=== PATIENT | female | born 1995 | race Native Hawaiian/Other Pacific Islander ===

== ENCOUNTER 2018-05-10 16:25 | Emergency (ER) | payer BC, OTHER ==
[2018-05-10 16:43] VITALS: BP 109/66; PULSE 104; RESP 20; TEMP 99
--- NOTE | 2018-05-10 17:48 | ED ---
Back Pain HPI - General Chief Complaint: Back Pain/Injury Stated Complaint: Back pain Time Seen by Provider: 05/10/18 16:55 Source: patient, RN notes reviewed Mode of arrival: ambulatory Limitations: no limitations - History of Present Illness Initial Comments: This is a 22-year-old female who presents to the emergency department with chief complaint of back pain. Patient states that she was sitting at home yesterday and began to experience left sided upper back and rib pain. She denies any specific injuries or trauma. She denies any past medical history. She denies chest pain or shortness of breath. Denies cough, fevers or chills, abdominal pain, nausea or vomiting, dysuria or hematuria. Patient states she is here because she would like a prescription for the pain. - Related Data Previous Rx's Medication Instructions Recorded Ibuprofen 600 mg PO Q6HR #20 tablet 05/10/18 Allergies Allergy/AdvReac Type Severity Reaction Status Date / Time No Known Allergies Allergy Verified 05/10/18 17:25 Review of Systems ROS Statement: Those systems with pertinent positive or pertinent negative responses have been documented in the HPI. ROS Other: All systems not noted in ROS Statement are negative. Past Medical History Past Medical History: No Reported History History of Any Multi-Drug Resistant Organisms: None Reported Past Surgical History: No Surgical Hx Reported Past Anesthesia/Blood Transfusion Reactions: No Reported Reaction Past Psychological History: No Psychological Hx Reported Smoking Status: Never smoker Past Alcohol Use History: None Reported Past Drug Use History: None Reported - Past Family History Mother Family Medical History: No Reported History General Exam - General Exam Comments Initial Comments: General: Awake and alert, well-developed; in no apparent distress. Patient appears well. Does not appear acutely ill. HEENT: Head atraumatic, normocephalic. Pupils are equal, round and reactive to light. Extraocular movements intact. Oropharynx moist without erythema or exudate. Neck: Supple. Normal ROM. Cardiovascular: Regular rate and rhythm. No murmurs, rubs or gallops. Chest symmetrical. Respiratory: Lungs clear to auscultation bilaterally. No wheezes, rales or rhonchi. Normal respiratory effort with no use of accessory muscles. Musculoskeletal: Normal ROM bilateral upper and lower extremities. Ambulating normally. Tenderness on palpation of left scapula and left lateral ribs. Skin: [place], warm and dry without rashes or lesions. Neurological: Alert and oriented x3. CN II-XII grossly intact. Speech is fluent and answers are appropriate. No focal neuro deficits. Psychiatric: Normal mood and affect. No overt signs of depression or anxiety noted. Limitations: no limitations Back exam: Present: full ROM, tenderness (left scapula). Absent: muscle spasm, paraspinal tenderness, vertebral tenderness Course Vital Signs 05/10/18 16:41 Temperature 99.0 F Pulse Rate 104 H Respiratory 20 Rate Blood Pressure 109/66 O2 Sat by Pulse 99 Oximetry Medical Decision Making - Medical Decision Making This is a 22-year-old female who presents to the emergency department with chief complaint of left upper back pain. Patient states the pain started yesterday. Denies any falls, injuries or trauma. Patient has normal range of motion of left upper extremity. She is neurovascularly intact. There is mild tenderness on palpation of the left scapula. Patient requests pain medication. She will be provided with a prescription for ibuprofen. Recommended following up with her primary care provider. Vitals are stable and she is in no acute distress. She will be discharged home at this time. All questions were answered. Disposition Clinical Impression: Left-sided thoracic back pain Disposition: HOME SELF-CARE Condition: Good Instructions: Thoracic Back Strain (ED) Additional Instructions: Please take medications as prescribed. Please follow up with primary care provider within 1-2 days. Return to emergency department if symptoms should worsen or any concerns arise. Prescriptions: Ibuprofen 600 mg PO Q6HR #20 tablet Is patient prescribed a controlled substance at d/c from ED?: No Referrals: Kayden Reynolds III, MD [Primary Care Provider] - 1-2 days Time of Disposition: 17:48
== END 2018-05-10 18:06 | disposition home or self-care (01) ==
LOC: EC 16:25
DX: M54.6 Pain in thoracic spine (principal); R07.81 Pleurodynia
CPT/HCPCS: 99283

== ENCOUNTER → 2018-09-15 | Outpatient (CLI) | payer OTHER ==
--- NOTE | 2018-09-16 08:28 | US ---
EXAMINATION TYPE: Transabdominal DATE OF EXAM: 12/07/17 COMPARISON: NONE CLINICAL HISTORY: Z36 Confirm Dates. Confirm dates EXAM PERFORMED: Transabdominal (TA) EXAM MEASUREMENTS: GESTATIONAL AGE / DATING Physician Established: Not yet established Dates by LMP: (10 weeks/0 days) EDC: 04/13/19 Dates by First Scan: No previous this is first scan Dates by Current Scan for: (10 weeks/1 days) EDC: 04/12/19 MATERNAL ANATOMY Uterus: 11.7 x 5.3 x 9.1cm Right Ovary: 3.0 x 1.7 x 1.2cm Left Ovary: 3.2 x 2.4 x 1.5cm Post CDS / Adnexa: appear wnl Presence of free fluid: no GESTATION / SURVEY CRL: 3.2cm (10 weeks/1 days) Yolk Sac (normal less than 6mm): 0.4cm Heart Rate: 176 bpm Rhythm: Normal IUP: Live IUP Date of LMP: 07/07/18 IMPRESSION: Single live intrauterine with a sonographic age of 10wks/1day and estimated date of deliver y of 04/12/19, concordant with menstrual age.
== END | disposition home or self-care (01) ==
LOC: RADUSWWP 15:18
PROVIDERS: ATTEND Obstetrics & Gynecology
DX: Z36.9 Encounter for antenatal screening, unspecified (principal); Z3A.10 10 weeks gestation of pregnancy
CPT/HCPCS: 76801

== ENCOUNTER 2018-09-21 08:44 | Emergency (ER) | payer OTHER ==
[2018-09-21 08:53] VITALS: TEMP 98.5
[2018-09-21] MEDS ORDERED: ACETAMINOPHEN IV (For NPO) 1,000 MG in EMPTY BAG 1 BAG IVPB STA (09:04)
--- NOTE | 2018-09-21 09:06 | ED ---
General Adult HPI - General Chief complaint: Abdominal Pain Stated complaint: Abd Pain-10 wks Time Seen by Provider: 09/21/18 08:56 Source: patient, RN notes reviewed, old records reviewed Mode of arrival: wheelchair Limitations: no limitations - History of Present Illness Initial comments: Patient 22-year-old female who presents emergency room today with a chief complaint of right-sided flank pain that started this morning approximately 4 hours ago. Patient describes it as a cramping type pain. Currently rated a 9/ 10. Did not take any pain medication. Patient is G2, P1 naproxen 10 weeks by ultrasound. She denies any vaginal bleeding or discharge. Patient denies any other complaints or symptoms. Patient denies any recent fever, chills , shortness of breath, chest pain, nausea or vomiting, numbness or tingling, dysuria or hematuria, headaches or visual changes, or any other complaints. - Related Data Previous Rx's Medication Instructions Recorded Cephalexin [Keflex] 500 mg PO Q12HR 10 Days cap 09/21/18 Allergies Allergy/AdvReac Type Severity Reaction Status Date / Time No Known Allergies Allergy Verified 09/21/18 09:05 Review of Systems ROS Statement: Those systems with pertinent positive or pertinent negative responses have been documented in the HPI. ROS Other: All systems not noted in ROS Statement are negative. Past Medical History Past Medical History: No Reported History History of Any Multi-Drug Resistant Organisms: None Reported Past Surgical History: No Surgical Hx Reported Past Anesthesia/Blood Transfusion Reactions: No Reported Reaction Past Psychological History: No Psychological Hx Reported Smoking Status: Never smoker Past Alcohol Use History: None Reported Past Drug Use History: None Reported - Past Family History Mother Family Medical History: No Reported History General Exam - General Exam Comments Initial Comments: General: The patient is awake and alert, in no distress, and does not appear acutely ill. Eye: There is normal conjunctiva bilaterally. No signs of icterus. Ears, nose, mouth and throat: There are moist mucous membranes and no oral lesions. Neck: The neck is supple, there is no tenderness or JVD. Cardiovascular: There is a regular rate and rhythm. No murmur, rub or gallop is appreciated. Respiratory: Lungs are clear to auscultation, respirations are non-labored, breath sounds are equal. No wheezes, stridor, rales, or rhonchi. Gastrointestinal: Soft, non-distended, non-tender abdomen without masses or organomegaly noted. There is no rebound or guarding present. Mild tenderness in the right flank. Musculoskeletal: Normal ROM, no tenderness. Neurological: A&O x 3. CN II-XII intact, There are no obvious motor or sensory deficits. Coordination appears grossly intact. Speech is normal. Skin: Skin is warm and dry and no rashes or lesions are noted. Psychiatric: Cooperative, appropriate mood & affect, normal judgment. Limitations: no limitations Course Vital Signs 09/21/18 08:50 Temperature 98.5 F Pulse Rate 86 Respiratory 16 Rate Blood Pressure 94/62 O2 Sat by Pulse 99 Oximetry Medical Decision Making - Medical Decision Making Case discussed in detail with attending physician Dr. Tran. Patient's labs been reviewed. Patient's urinalysis does show evidence for urinary tract infection. Patient given dose Rocephin here in emergency room. Vitals are stable. No Fever. Patient doing well at this time. Patient's ultrasound does show evidence for possible fibroid and also a small subchorionic bleed. This was discussed with the patient. Will be discharged home to follow-up with both [employer] and family physician. Patient is advised close follow-up to follow-up in the next 1-2 days return here to emergency room if any symptoms increase or worsen. She states understanding and is in agreement. - Lab Data Result diagrams: 09/21/18 09:20 09/21/18 09:20 Lab Results 09/21/18 09/21/18 09/21/18 Range/Units 09:20 09:20 09:20 WBC 5.8 (3.8-10.6) k/uL RBC 4.04 (3.80-5.40) m/uL Hgb 12.0 (11.4-16.0) gm/dL Hct 35.5 (34.0-46.0) % MCV 87.9 (80.0-100.0) fL MCH 29.7 (25.0-35.0) pg MCHC 33.8 (31.0-37.0) g/dL RDW 13.6 (11.5-15.5) % Plt Count 222 (150-450) k/uL Neutrophils % 75 % Lymphocytes % 19 % Monocytes % 3 % Eosinophils % 1 % Basophils % 0 % Neutrophils # 4.3 (1.3-7.7) k/uL Lymphocytes # 1.1 (1.0-4.8) k/uL Monocytes # 0.2 (0-1.0) k/uL Eosinophils # 0.1 (0-0.7) k/uL Basophils # 0.0 (0-0.2) k/uL Sodium 137 (137-145) mmol/L Potassium 4.3 (3.5-5.1) mmol/L Chloride 106 (98-107) mmol/L Carbon Dioxide 24 (22-30) mmol/L Anion Gap 7 mmol/L BUN 9 (7-17) mg/dL Creatinine 0.46 L (0.52-1.04) mg/dL Est GFR (CKD-EPI)AfAm >90 (>60 ml/min/1.73 sqM) Est GFR (CKD-EPI)NonAf >90 (>60 ml/min/1.73 sqM) Glucose 95 (74-99) mg/dL Calcium 9.5 (8.4-10.2) mg/dL Total Bilirubin 1.2 (0.2-1.3) mg/dL AST 22 (14-36) U/L ALT 40 (9-52) U/L Alkaline Phosphatase 33 L (38-126) U/L Total Protein 6.9 (6.3-8.2) g/dL Albumin 3.9 (3.5-5.0) g/dL HCG, Quant 72625.2 mIU/mL Urine Color Yellow Urine Appearance Cloudy H (Clear) Urine pH 8.0 (5.0-8.0) Ur Specific Whick 1.015 (1.001-1.035) Urine Protein Trace H (Negative) Urine Glucose (UA) Negative (Negative) Urine Ketones Negative (Negative) Urine Blood Trace H (Negative) Urine Nitrite Negative (Negative) Urine Bilirubin Negative (Negative) Urine Urobilinogen 2.0 (<2.0) mg/dL Ur Leukocyte Esterase Moderate H (Negative) Urine RBC 17 H (0-5) /hpf Urine WBC 129 H (0-5) /hpf Urine WBC Clumps Rare H (None) /hpf Ur Squamous Epith Cells 2 (0-4) /hpf Amorphous Sediment Rare H (None) /hpf Urine Bacteria Moderate H (None) /hpf Urine Mucus Occasional H (None) /hpf Disposition Clinical Impression: UTI (urinary tract infection) Disposition: HOME SELF-CARE Condition: Good Instructions: Urinary Tract Infection in Women (ED) Additional Instructions: Please use medication as discussed. Please follow-up the [employer]/family physician in the next 1-2 days. Please return to emergency room if the symptoms increase or worsen or for any other concerns. Prescriptions: Cephalexin [Keflex] 500 mg PO Q12HR 10 Days cap Is patient prescribed a controlled substance at d/c from ED?: No Referrals: Kayden Reynolds III, MD [Primary Care Provider] - 1-2 days Time of Disposition: 10:55
[2018-09-21 09:42] LABS: Basophils % (A) 0 %; Eosinophils # (A) 0.1 k/uL (0-0.7); Eosinophils % (A) 1 %; HCT 35.5 % (34.0-46.0); Lymphocytes # (A) 1.1 k/uL (1.0-4.8); Lymphocytes % (A) 19 %; MCH 29.7 pg (25.0-35.0); MCHC 33.8 g/dL (31.0-37.0); MCV 87.9 fL (80.0-100.0); Mean Platelet Volume 6.8; Monocytes # (A) 0.2 k/uL (0-1.0); Monocytes % (A) 3 %; Neutrophils # (A) 4.3 k/uL (1.3-7.7); Neutrophils % (A) 75 %; Platelet Count 222 k/uL (150-450); RBC 4.04 m/uL (3.80-5.40); RDW 13.6 % (11.5-15.5); WBC 5.8 k/uL (3.8-10.6)
[2018-09-21 09:52] LABS: ALT 40 U/L (9-52); AST 22 U/L (14-36); Albumin 3.9 g/dL (3.5-5.0); Alkaline Phosphatase 33 U/L (38-126); Anion Gap 7 mmol/L; Blood Urea Nitrogen 9 mg/dL (7-17); Calcium 9.5 mg/dL (8.4-10.2); Carbon Dioxide 24 mmol/L (22-30); Chloride 106 mmol/L (98-107); Glucose 95 mg/dL (74-99); Potassium 4.3 mmol/L (3.5-5.1); Sodium 137 mmol/L (137-145); Total Bilirubin 1.2 mg/dL (0.2-1.3); Total Protein 6.9 g/dL (6.3-8.2)
[2018-09-21 10:11] LABS: Amorphous Sediment,Urine Rare /hpf; Appearance,Urine Cloudy (Clear); Bacteria,Urine Moderate /hpf; Bilirubin,Urine Negative (Negative); Blood,Urine Trace (Negative); Color,Urine Yellow; Glucose,Urine (UA) Negative (Negative); Ketones,Urine Negative (Negative); Leukocyte Esterase,Urine Moderate (Negative); Mucus,Urine Occasional /hpf; Nitrite,Urine Negative (Negative); Protein,Urine Trace (Negative); RBC,Urine 17 /hpf (0-5); Specific Gravity,Urine 1.015 (1.001-1.035); Squamous Epithelial Cell,Urine 2 /hpf (0-4); WBC,Urine 129 /hpf (0-5)
--- NOTE | 2018-09-21 10:22 | US ---
EXAMINATION TYPE: Transabdominal DATE OF EXAM: 12/07/17 COMPARISON: US CLINICAL HISTORY: Pain. Pelvic pain today; EXAM PERFORMED: Transabdominal (TA) EXAM MEASUREMENTS: GESTATIONAL AGE / DATING Physician Established: Not yet established Dates by LMP: (10 weeks/6 days) EDC: 04/13/2019 Dates by First Scan: (11 weeks/0 days) EDC: 04/12/2019 Dates by Current Scan for: (11 weeks/2 days) EDC: 04/10/2019 MATERNAL ANATOMY Uterus: 11.3 x 8.4 x 6.9cm; possible uterine fibroids seen upper myometrium, noted as lobular and iso echoic to uterine wall with area = 3.9 x 3.7 x 2.1cm. Right Ovary: not seen Left Ovary: 2.9 x 2.1 x 1.8cm Post CDS / Adnexa: wnl Presence of free fluid: no Presence of corpus luteal cyst: not discreetly seen Presence of subchorionic bleed: small anechoic area is seen superior uterus at right sub chorion = 1. 4 x 0.9 x 0.9cm GESTATION / SURVEY CRL: 4.5cm (11 weeks/2 days) Yolk Sac (normal less than 6mm): 3.7mm Heart Rate: 168 bpm Rhythm: Normal IUP: Viable IUP Date of LMP: 07/07/2018 Beta HcG (if available): NA Single, live IUP,11 weeks/2 days, EDC: 04/10/2019, HR 168bpm; possible superior uterine fibroids. IMPRESSION: 1. Single intrauterine gestation estimated at 11 weeks 2 days gestation based on current ultrasound m easurements. Heart rate measures 160 bpm. 2. Suspected uterine fibroids within the fundus of uterus. 3. Small subchorionic hemorrhage measuring 1.4 x 0.9 x 0.9
[2018-09-21 10:43] LABS: HCG,Quantitative Serum 49137.2 mIU/mL
[2018-09-21 11:20] VITALS: BP 112/72; PULSE 70; RESP 18
== END 2018-09-21 11:25 | disposition home or self-care (01) ==
LOC: EC 08:44
DX: O23.41 Unspecified infection of urinary tract in pregnancy, first trimester (principal); O20.8 Other hemorrhage in early pregnancy; Z3A.11 11 weeks gestation of pregnancy
CPT/HCPCS: 36415; 80053; 85025; 81001; 84702; 87086; 76801; 99284; 96365; 96367; J0696; J0131

== ENCOUNTER 2019-01-19 16:45 | Outpatient (CLI) | payer OTHER ==
[2019-01-19 17:18] VITALS: BP 118/56; PULSE 79; RESP 16; TEMP 97.2
[2019-01-19 17:46] LABS: Appearance,Urine Clear (Clear); Bacteria,Urine Occasional /hpf; Bilirubin,Urine Negative (Negative); Blood,Urine Small (Negative); Color,Urine Yellow; Glucose,Urine (UA) Negative (Negative); Ketones,Urine 1+ (Negative); Leukocyte Esterase,Urine Small (Negative); Mucus,Urine Few /hpf; Nitrite,Urine Negative (Negative); PH, Urine 7.5 (5.0-8.0); Protein,Urine Trace (Negative); RBC,Urine 53 /hpf (0-5); Squamous Epithelial Cell,Urine 1 /hpf (0-4); Urobilinogen,Urine <2.0 mg/dL (<2.0); WBC,Urine 3 /hpf (0-5)
--- NOTE | 2019-01-25 08:19 | P.MSEPDOC ---
Presenting Problems - Arrival Data Date of Arrival on Unit: 01/19/19 Time of Arrival on Unit: 16:50 Mode of Transport: Ambulatory - Complaint OB-Reason for Admission/Chief Complaint: Vaginal Bleeding Medical History - Information : 2 Para: 1 Number of Living Children: 1 - Gestational Age Gestational Age by SHITAL (wks/days): 28 Weeks and 0 Days Review of Systems - Review of Systems Constitutional: No problems Breast: No problems ENT: No problems Cardiovascular: No problems Respiratory: No problems Gastrointestinal: No problems Genitourinary: No problems Musculoskeletal: No problems Neurological: No problems Skin: No problems Vital Signs - Temperature Temperature: 97.2 F Temperature Source: Temporal Artery Scan - Pulse Right Sitting Brachial Pulse Rate: 79 Pulse Assessment Method: Automatic Cuff - Respirations Respiratory Rate: 16 Oxygen Delivery Method: Room Air O2 Sat by Pulse Oximetry: 98 - Blood Pressure Right Arm Sitting Blood Pressure: 118/56 Blood Pressure Mean: 76 Blood Pressure Source: Automatic Cuff Medical Screen Scoring (Pre) - Cervical Exam Dilation: Exam Deferred Effacement: Exam Deferred Membranes: Intact - Uterine Contractions Frequency: N/A Duration: N/A Intensity: N/A - Maternal Vital Signs Maternal Temperature: N/A Maternal Blood Pressure: N/A Signs of Preeclampsia: N/A Maternal Respirations: N/A - Pain Assessment Pain Scale Used: Numeric (1 - 10) Pain Intensity: 0 - Maternal Trauma Maternal Trauma: N/A - Total Score Total Score (Pre): 0 Physician Notification (Pre) - Physician Notified Physician Notified Time: 18:00 Spoke With: Dr Florentino Disposition - Disposition OB Disposition: Discharge to home Discharge Date: 01/19/19 Discharge Time: 18:05 I agree with the RN Medical Screening Exam: Yes Risk & Benefit of care provided described in d/c instruction: Yes Diagnosis: SPOTTING COMPLICATING , THIRD TRIMESTER
== END 2019-01-19 18:05 | disposition home or self-care (01) ==
LOC: FBPOP 16:45
PROVIDERS: ATTEND Obstetrics & Gynecology
DX: O26.853 Spotting complicating pregnancy, third trimester (principal); Z3A.28 28 weeks gestation of pregnancy
CPT/HCPCS: 59025; 81001; G0463; 99213

== ENCOUNTER 2019-03-28 18:20 | Outpatient (CLI) | payer OTHER ==
[2019-03-28 19:13] VITALS: BP 104/60; PULSE 74; RESP 18; TEMP 98.6
--- NOTE | 2019-03-29 07:08 | P.MSEPDOC ---
Presenting Problems - Arrival Data Date of Arrival on Unit: 03/28/19 Time of Arrival on Unit: 18:20 Mode of Transport: Ambulatory - Complaint OB-Reason for Admission/Chief Complaint: Possible Onset of Labor, Rule Out SROM Comment: Pt presents for possible SROM and contractions Medical History - Information : 2 Para: 1 Term: 1 : 0 Abortions: Spontaneous or Elective: 0 Number of Living Children: 1 - Gestational Age Gestational Age by SHITAL (wks/days): 37 Weeks and 5 Days - History Complications: GBS+, Smoker Review of Systems - Review of Systems Constitutional: No problems Breast: No problems ENT: No problems Cardiovascular: No problems Respiratory: No problems Gastrointestinal: No problems Genitourinary: No problems Musculoskeletal: No problems Neurological: No problems Skin: No problems Vital Signs - Temperature Temperature: 98.6 F Temperature Source: Oral - Pulse Apical Pulse Rate: 74 Pulse Assessment Method: Automatic Cuff - Respirations Respiratory Rate: 18 Oxygen Delivery Method: Room Air O2 Sat by Pulse Oximetry: 98 - Blood Pressure Right Arm Blood Pressure: 104/60 Blood Pressure Mean: 74 Blood Pressure Source: Automatic Cuff Medical Screen Scoring (Pre) - Cervical Exam Dilation: 1-3 cm = 1 Effacement: Exam Deferred Membranes: Intact - Uterine Contractions Frequency: > 5 minutes apart = 1 Duration: N/A Intensity: N/A - Maternal Vital Signs Maternal Temperature: N/A Maternal Blood Pressure: N/A Signs of Preeclampsia: N/A Maternal Respirations: N/A - Maternal Trauma Maternal Trauma: N/A - Assessment - Baby A Baseline FHR: 135 Heart Rate - NICHD Category: Category I (Normal) = 0 NST: Reactive Position: N/A Station: N/A - Total Score - Baby A Total Score - Baby A: 2 - Total Score - Baby B Total Score - Baby B: 2 - Total Score - Baby C Total Score - Baby C: 2 - Level of Risk - Baby A Level of Risk - Baby A: Low (0-5) - Level of Risk - Baby B Level of Risk - Baby B: Low (0-5) - Level of Risk - Baby C Level of Risk - Baby C: Low (0-5) Physician Notification (Pre) - Physician Notified Physician Notified Date: 03/28/19 Physician Notified Time: 18:45 Physician/Practitioner Notifed:: Dr. Martinez Spoke With: Dr.Hartman Helton Order Received: Yes (January d/c pt home if less than 5cm cervical exam in one hour) Medical Screen Scoring (Post) - Cervical Exam Dilation: 1-3 cm = 1 Effacement: More than 50% = 2 Membranes: Intact - Uterine Contractions Frequency: > or = 36 weeks =2 Duration: > 40 seconds = 2 Intensity: N/A - Maternal Vital Signs Maternal Temperature: N/A Maternal Blood Pressure: N/A Signs of Preeclampsia: N/A - Assessment - Baby A Heart Rate - NICHD Category: Category I (Normal) = 0 NST: Reactive - Total Score Total Score - Baby A: 7 Total Score - Baby B: 7 Total Score - Baby C: 7 - Post Treatment Level of Risk Post Treatment Level of Risk - Baby A: Medium (6-9) Post Treatment Level of Risk - Baby B: Medium (6-9) Post Treatment Level of Risk - Baby C: Medium (6-9) Physician Notification (Post) - Physician Notified Physician Notified Date: 03/28/19 Physician Notified Time: 19:20 Physician/Practitioner Notified:: ANGIE Helton Order Received: Yes Disposition - Disposition OB Disposition: Discharge to home, Written follow up instructions reviewed Discharge Date: 03/28/19 Discharge Time: 19:45 I agree with the RN Medical Screening Exam: Yes Risk & Benefit of care provided described in d/c instruction: Yes Diagnosis: FALSE LABOR AT OR AFTER 37 COMPLETED WEEKS OF GESTATION
== END 2019-03-28 19:45 | disposition home or self-care (01) ==
LOC: FBPOP 18:20
PROVIDERS: ATTEND Obstetrics & Gynecology
DX: O47.1 False labor at or after 37 completed weeks of gestation (principal); Z3A.37 37 weeks gestation of pregnancy
CPT/HCPCS: 59025; 84112; G0463; 99213

== ENCOUNTER 2019-04-12 08:01 | Inpatient (IN) | payer OTHER ==
[2019-04-12] MEDS ORDERED: METHYLERGONOVINE 0.2 MG/ML 1 ML AMP IM PRN (08:30)
[2019-04-12] MEDS ORDERED: TERBUTALINE 1 MG/ML VIAL SQ PRN (08:30)
[2019-04-12] MEDS ORDERED: OXYTOCIN 10 UNIT/ML 1 ML VIAL IM PRN (08:30)
[2019-04-12] MEDS ORDERED: AMPICILLIN 2,000 MG in SODIUM CHLORIDE 0.9% 100 ML IVPB STA (08:30)
[2019-04-12] MEDS ORDERED: LIDOCAINE 0.5% (PF) 5 MG/ML (50 ML SDV) SQ PRN (08:30)
[2019-04-12] MEDS ORDERED: CARBOPROST TROMETHAMINE 250 MCG/ML 1 ML AMP IM PRN (08:30)
[2019-04-12 08:47] LABS: Basophils % (A) 0 %; Eosinophils # (A) 0.1 k/uL (0-0.7); Eosinophils % (A) 2 %; HCT 35.1 % (34.0-46.0); HGB 11.7 gm/dL (11.4-16.0); Lymphocytes # (A) 1.9 k/uL (1.0-4.8); Lymphocytes % (A) 27 %; MCH 28.7 pg (25.0-35.0); MCHC 33.4 g/dL (31.0-37.0); MCV 85.9 fL (80.0-100.0); Monocytes # (A) 0.3 k/uL (0-1.0); Monocytes % (A) 4 %; Neutrophils # (A) 4.5 k/uL (1.3-7.7); Neutrophils % (A) 65 %; Platelet Count 288 k/uL (150-450); RBC 4.08 m/uL (3.80-5.40); RDW 14.5 % (11.5-15.5); WBC 6.9 k/uL (3.8-10.6)
[2019-04-12 08:50] VITALS: BMI 36.8
[2019-04-12] MEDS: LACTATED RINGERS 1,000 ML IV SCH ×2 (08:51→21:20)
[2019-04-12] MEDS ORDERED: diphenhydrAMINE 50 MG/ML 1 ML VIAL IVP PRN ×2 (09:38)
[2019-04-12] MEDS ORDERED: diphenhydrAMINE 25 MG CAP PO PRN (09:38)
[2019-04-12] MEDS ORDERED: HYDROCORTISONE 2.5% RECTAL CREAM 30 GM TUBE RECTAL PRN (09:38)
[2019-04-12] MEDS ORDERED: BENZOCAINE/MENTHOL SPRAY 1 GM/SPRAY AEROSOL TOPICAL PRN (09:38)
[2019-04-12] MEDS ORDERED: ACETAMINOPHEN TAB 325 MG TAB PO PRN (09:38)
[2019-04-12] MEDS ORDERED: LANOLIN CREAM 5 GM TUBE TOPICAL PRN (09:38)
[2019-04-12] MEDS ORDERED: diphenhydrAMINE 50 MG CAP PO PRN (09:38)
[2019-04-12] MEDS ORDERED: ZOLPIDEM 5 MG TAB PO PRN (09:38)
[2019-04-12] MEDS ORDERED: SIMETHICONE 80 MG CHEWABLE PO PRN (09:38)
[2019-04-12] MEDS ORDERED: WITCH HAZEL 1 EACH MED..PAD TOPICAL PRN (09:38)
[2019-04-12] MEDS ORDERED: OXYTOCIN 20 UNITS/1000 ML NS 1,000 ML IV SCH (09:45)
--- NOTE | 2019-04-12 12:58 | P.HPOB ---
History of Present Illness H&P Date: 04/12/19 Chief Complaint: Contractions This is a 23-year-old female 2 para 1 with an estimated date of confinement of 04/13/2019, estimated gestational age of 39-6/7 weeks, who presented to labor and delivery with complaints of contractions since 7 AM this morning. She has been feeling good movement. On arrival to triage she was found to be 8-9 cm. Her course has been essentially uncomplicated although she did have a large gap in care from 19 weeks' to 35 weeks. She also did not show up to her last appointment a week ago. A drug screen was done at 35 weeks and was negative. labs: Hepatitis B surface antigen-negative RPR-nonreactive Rubella-immune Blood type-O+ Antibody screen-negative Hemoglobin-11.6 Random glucose-94 Obstetrical ultrasound-normal anatomy Quad screen-negative One hour Glucola-100 Group B streptococcus-positive Obstetrical history: . History of 1 vaginal delivery at term. Gynecologic history: No history of sexually transmitted diseases. Review of Systems Constitutional: Denies chills, Denies fever Eyes: denies blurred vision, denies pain Ears, nose, mouth and throat: Denies headache, Denies sore throat Cardiovascular: Denies chest pain, Denies shortness of breath Respiratory: Denies cough Gastrointestinal: Reports abdominal pain (Contractions) Genitourinary: Reports pelvic pain, Reports Musculoskeletal: Reports low back pain Integumentary: Denies pruritus, Denies rash Neurological: Denies numbness, Denies weakness Psychiatric: Denies anxiety, Denies depression Past Medical History Past Medical History: No Reported History History of Any Multi-Drug Resistant Organisms: None Reported Past Surgical History: No Surgical Hx Reported Past Anesthesia/Blood Transfusion Reactions: No Reported Reaction Past Psychological History: No Psychological Hx Reported Smoking Status: Current every day smoker Past Alcohol Use History: None Reported Past Drug Use History: None Reported - Past Family History Mother Family Medical History: No Reported History Medications and Allergies Home Medications Medication Instructions Recorded Confirmed Type No Known Home Medications 03/28/19 04/12/19 History Allergies Allergy/AdvReac Type Severity Reaction Status Date / Time No Known Allergies Allergy Verified 03/28/19 18:54 Exam Osteopathic Statement: *. No significant issues noted on an osteopathic structural exam other than those noted in the History and Physical/Consult. Vital Signs Temp Pulse Resp BP 04/12/19 09:45 72 18 118/59 04/12/19 08:28 96.4 F L 74 20 119/7 Intake and Output 04/11/19 04/12/19 04/12/19 22:59 06:59 14:59 Other: Weight 106.594 kg HEENT: Within normal limits Heart: Regular rate and rhythm Lungs: Clear to auscultation bilaterally Abdomen: Vertex: 8 cm/90%/-2 station with bulging bag. Artificial rupture of membranes is carried out with clear fluid noted. heart tones: Reactive. Contractions: Every 2 minutes Extremities: Negative Homans Results Result Diagrams: 04/12/19 08:38 Assessment and Plan (1) 39 weeks gestation of Current Visit: Yes Status: Acute Code(s): Z3A.39 - 39 WEEKS GESTATION OF SNOMED Code(s): 60218623 (2) Group B Streptococcus carrier, +RV culture, currently Current Visit: Yes Status: Acute Code(s): O99.820 - STREPTOCOCCUS B CARRIER STATE COMPLICATING SNOMED Code(s): 8996182238231 Plan: Admission for active labor. Antibiotic prophylaxis for group B streptococcus. Expectant management. Will obtain high school social studies teacher consult after delivery due to gap in care.
[2019-04-12] MEDS: IBUPROFEN 600 MG TAB PO PRN ×2 (13:00→20:38)
--- NOTE | 2019-04-12 13:00 | P.PROBDLV ---
Vaginal Delivery Note - . Vaginal Delivery Note: The patient progressed to complete dilation fairly rapidly after artificial rupture of membranes was carried out. She began pushing. Infant's head came to a crown. With one further push, the 's head delivered across the perineum followed by the anterior shoulder. Nose and mouth were bulb suctioned at the perineum. With one further push, the remainder the easily delivered and was placed on mother's abdomen. Cord was clamped and cut and was taken to warmer for evaluation. A viable female was noted with scores of 9 at 1 minute and 9 at 5 minutes and weight was 8 lbs. 1 oz. Placenta delivered shortly thereafter, intact, with a three-vessel cord. Uterus contracted fairly well after oxytocin was given IM and uterine massage was carried out. Inspection of the perineum revealed a small left periurethral abrasion. This was noted to be hemostatic. Estimated blood loss is approximately 150 mL's. Both mother and infant are in stable condition.
[2019-04-12] MEDS: SENNOSIDES-DOCUSATE SODIUM 1 EACH TAB PO SCH (20:38)
[2019-04-12] MEDS: AMPICILLIN 1,000 MG in SODIUM CHLORIDE 0.9% 50 ML IVPB SCH (21:19)
[2019-04-13 06:20] LABS: Basophils % (A) 0 %; Eosinophils # (A) 0.1 k/uL (0-0.7); Eosinophils % (A) 1 %; HCT 32.9 % (34.0-46.0); HGB 10.6 gm/dL (11.4-16.0); Lymphocytes # (A) 2.2 k/uL (1.0-4.8); Lymphocytes % (A) 28 %; MCH 28.4 pg (25.0-35.0); MCHC 32.3 g/dL (31.0-37.0); Mean Platelet Volume 7.4; Monocytes # (A) 0.4 k/uL (0-1.0); Monocytes % (A) 5 %; Neutrophils % (A) 65 %; Platelet Count 249 k/uL (150-450); RBC 3.74 m/uL (3.80-5.40); RDW 14.8 % (11.5-15.5); WBC 7.8 k/uL (3.8-10.6)
[2019-04-13] MEDS: SENNOSIDES-DOCUSATE SODIUM 1 EACH TAB PO SCH ×2 (08:55→20:12)
[2019-04-13] MEDS: IBUPROFEN 600 MG TAB PO PRN ×2 (08:55→16:57)
--- NOTE | 2019-04-13 09:17 | P.DS ---
Providers Date of admission: 04/12/19 08:23 Expected date of discharge: 04/13/19 Attending physician: Yessica Tony Primary care physician: Stated None - Discharge Diagnosis(es) (1) 39 weeks gestation of Current Visit: Yes Status: Acute (2) Group B Streptococcus carrier, +RV culture, currently Current Visit: Yes Status: Acute Hospital Course: This is a 23-year-old female 2 para 1 at 39-6/7 weeks who presented in active labor. She delivered vaginally a viable female infant on 04/12/2019 with scores of 9 at 1 minute and 9 at 5 minutes and infant weight of 8 lbs. 1 oz. Her course has been uncomplicated. Lochia is decreasing. Pain has been fairly well-controlled with ibuprofen. She is bottle feeding. Vital signs are stable. Abdomen is soft with fundus firm and nontender. Extremities show negative Homans. Impression is status post vaginal delivery day #1. Plan is to discharge home today. Routine instructions are given. She will be given a prescription for ibuprofen. She is advised to follow-up in the office in 6 weeks for check. She is advised to call the office if she has any further questions or concerns prior to her appointment time. Procedures: Spontaneous vaginal delivery of a viable female on 04/12/2019 Patient Condition at Discharge: Stable Plan - Discharge Summary New Discharge Prescriptions: New Ibuprofen [Motrin] 600 mg PO Q6HR PRN #60 tab PRN Reason: Mild Pain Or Fever >= 100.5 Discharge Medication List Ibuprofen [Motrin] 600 mg PO Q6HR PRN #60 tab 04/13/19 [Rx] Follow up Appointment(s)/Referral(s): Yessica Tony DO [Doctor of Osteopathic Medicine] - 6 Weeks Activity/Diet/Wound Care/Special Instructions: Instructions 1. Do not begin any exercise program for 3 weeks. 2. Do not resume sexual relations for 3 weeks or longer if uncomfortable. 3. You may take tub baths or showers at any time. 4. You may use tampons if desired after 3 weeks. 5. Keep the area of episiotomy (stitches) clean and dry. 6. If you are not nursing, wear a good fitting, supportive bra during the day and limit fluid intake for at least 1 week to prevent breast engorgement. 7. Call the office, [phone], within the next week to make appointment for your 6 week checkup if it has not already been made. 8. Report any of the following occurrences to the doctor promptly: a. Heavy, excessive bleeding b. Chills, fever c. Burning or frequency of urination d. Pain or redness and breasts if nursing e. Increasing pain or swelling in episiotomy (stitches). In addition to the above instructions, the following additional should be followed: 1. No heavy lifting or straining (exercising) until after 6 week checkup. 2. Keep abdominal incision clean and dry: You may wear a dressing if more comfortable. 3. Make office appointment for 10 days after going home or as instructed by her doctor. Discharge Disposition: HOME SELF-CARE
[2019-04-13] MEDS ORDERED: medroxyPROGESTERone 150 MG/ML 1ML VIAL IM ONE (09:30)
[2019-04-14] MEDS: IBUPROFEN 600 MG TAB PO PRN (06:17)
[2019-04-14] MEDS: SENNOSIDES-DOCUSATE SODIUM 1 EACH TAB PO SCH (09:46)
[2019-04-14 09:50] VITALS: BP 109/58; PULSE 74; RESP 16; TEMP 98.4
== END 2019-04-14 11:07 | disposition home or self-care (01) | DRG 807 ==
LOC: FBPOP 08:01 → 4FBP 08:23
PROVIDERS: ADMIT Obstetrics & Gynecology; ATTEND Obstetrics & Gynecology
PROC: 10E0XZZ Delivery of Products of Conception, External Approach (ICD-10-PCS; principal; 2019-04-12)
DX: O98.82 Other maternal infectious and parasitic diseases complicating childbirth (principal); Z37.0 Single live birth; B95.1 Streptococcus, group B, as the cause of diseases classified elsewhere; O71.82 Other specified trauma to perineum and vulva; Z3A.39 39 weeks gestation of pregnancy; O99.334 Smoking (tobacco) complicating childbirth; F17.200 Nicotine dependence, unspecified, uncomplicated
CPT/HCPCS: 85025; 86850; 86900; 86901; 88307

== ENCOUNTER 2020-09-20 07:09 | Inpatient (IN) | payer OTHER ==
[2020-09-20] MEDS ORDERED: OXYTOCIN 10 UNIT/ML 1 ML VIAL IM PRN (07:41)
[2020-09-20] MEDS ORDERED: TERBUTALINE 1 MG/ML VIAL SQ PRN (07:41)
[2020-09-20] MEDS ORDERED: METHYLERGONOVINE 0.2 MG/ML 1 ML AMP IM PRN (07:41)
[2020-09-20] MEDS ORDERED: LIDOCAINE 0.5% (PF) 5 MG/ML (50 ML SDV) SQ PRN (07:41)
[2020-09-20] MEDS ORDERED: CARBOPROST TROMETHAMINE 250 MCG/ML 1 ML AMP IM PRN (07:41)
[2020-09-20 07:42] VITALS: RESP 16
[2020-09-20] MEDS ORDERED: ROPIVACAINE 5MG/ML 20ML VIAL ONE (07:49)
[2020-09-20] MEDS ORDERED: fentaNYL (PF) 50 MCG/ML 5 ML AMP ONE (07:49)
[2020-09-20] MEDS ORDERED: SODIUM CHLORIDE 0.9% 100 ML BAG ONE (07:49)
[2020-09-20] MEDS ORDERED: AMPICILLIN 2,000 MG in SODIUM CHLORIDE 0.9% 100 ML IVPB STA (07:54)
--- NOTE | 2020-09-20 08:02 | P.HPOB ---
History of Present Illness H&P Date: 09/20/20 Chief Complaint: labor 24-year-old presents at 39 weeks complaining of contractions. Her cervix is 7 cm dilated, 90% effaced, -2 station. She is neville every 3-4 minutes. heart tones 135 with moderate variability and reactive. Review of Systems All systems: negative Constitutional: Denies chills, Denies fever Eyes: denies blurred vision, denies pain Ears, nose, mouth and throat: Denies headache, Denies sore throat Cardiovascular: Denies chest pain, Denies shortness of breath Respiratory: Denies cough Gastrointestinal: Denies abdominal pain, Denies diarrhea, Denies nausea, Denies vomiting Genitourinary: Denies dysuria, Denies hematuria Musculoskeletal: Denies myalgias Integumentary: Denies pruritus, Denies rash Neurological: Denies numbness, Denies weakness Psychiatric: Denies anxiety, Denies depression Endocrine: Denies fatigue, Denies weight change Past Medical History Past Medical History: No Reported History Additional Past Medical History / Comment(s): Obstetric history she's had 2 previous vaginal deliveries. She did her care with me from 18 weeks to 31 weeks. She stopped seeing me in July and to my knowledge has not done her 1 hour Glucola. Blood type is O+, antibodies negative, rubella immune, RPR nonreactive, hepatitis B negative. GBS unknown History of Any Multi-Drug Resistant Organisms: None Reported Past Surgical History: No Surgical Hx Reported Past Anesthesia/Blood Transfusion Reactions: No Reported Reaction Past Psychological History: No Psychological Hx Reported Smoking Status: Current every day smoker Past Alcohol Use History: None Reported Additional Past Alcohol Use History / Comment(s): pt. states she smoked 1 c igaret a day Past Drug Use History: None Reported - Past Family History Mother Family Medical History: No Reported History Medications and Allergies Allergies Allergy/AdvReac Type Severity Reaction Status Date / Time No Known Allergies Allergy Verified 03/28/19 18:54 Exam Osteopathic Statement: *. No significant issues noted on an osteopathic structural exam other than those noted in the History and Physical/Consult. Vital Signs Temp Pulse Resp BP Pulse Ox 09/20/20 07:32 96.3 F L 79 16 107/65 98 09/20/20 07:30 96.3 F L 79 16 107/65 98 Intake and Output 09/19/20 09/20/20 09/20/20 22:59 06:59 14:59 Other: Weight 108.862 kg Heart: Regular rate and rhythm Lungs: Clear to auscultation bilaterally Abdomen: Soft, nontender Extremities: Negative Homans sign Assessment and Plan (1) Normal labor Current Visit: Yes Status: Acute Code(s): O80 - ENCOUNTER FOR FULL-TERM UNCOMPLICATED DELIVERY; Z37.9 - OUTCOME OF DELIVERY, UNSPECIFIED SNOMED Code(s): 47794257 Plan: 1. Admit to family place 2. Expectant management 3. Anticipate normal vaginal delivery
[2020-09-20] MEDS: LACTATED RINGERS 1,000 ML IV SCH ×2 (08:15→23:32)
[2020-09-20 08:40] LABS: Basophils % (A) 0 %; Eosinophils % (A) 0 %; HCT 35.2 % (34.0-46.0); HGB 11.6 gm/dL (11.4-16.0); Lymphocytes # (A) 1.6 k/uL (1.0-4.8); Lymphocytes % (A) 18 %; MCH 27.8 pg (25.0-35.0); MCHC 32.9 g/dL (31.0-37.0); MCV 84.5 fL (80.0-100.0); Mean Platelet Volume 7.1; Monocytes # (A) 0.2 k/uL (0-1.0); Monocytes % (A) 3 %; Neutrophils # (A) 6.9 k/uL (1.3-7.7); Neutrophils % (A) 78 %; Platelet Count 296 k/uL (150-450); RBC 4.17 m/uL (3.80-5.40); WBC 8.8 k/uL (3.8-10.6)
[2020-09-20] MEDS ORDERED: OXYTOCIN 30 UNITS/500 ML NS 30 UNIT in SALINE 1 500ML.BAG IV SCH (11:15)
[2020-09-20] MEDS ORDERED: BENZOCAINE/MENTHOL SPRAY 1 GM/SPRAY AEROSOL TOPICAL PRN (11:29)
[2020-09-20] MEDS ORDERED: LANOLIN CREAM 5 GM TUBE TOPICAL PRN (11:29)
[2020-09-20] MEDS ORDERED: SIMETHICONE 80 MG CHEWABLE PO PRN (11:29)
[2020-09-20] MEDS ORDERED: diphenhydrAMINE 50 MG CAP PO PRN (11:29)
[2020-09-20] MEDS ORDERED: ZOLPIDEM 5 MG TAB PO PRN (11:29)
[2020-09-20] MEDS ORDERED: diphenhydrAMINE 50 MG/ML 1 ML VIAL IVP PRN ×2 (11:29)
[2020-09-20] MEDS ORDERED: HYDROcodone/APAP 5-325MG 1 EACH TAB PO PRN (11:29)
[2020-09-20] MEDS ORDERED: diphenhydrAMINE 25 MG CAP PO PRN (11:29)
[2020-09-20] MEDS ORDERED: HYDROCORTISONE 2.5% RECTAL CREAM 30 GM TUBE RECTAL PRN (11:29)
--- NOTE | 2020-09-20 12:39 | P.PROBDLV ---
Vaginal Delivery Note - . Vaginal Delivery Note: Patient progressed to complete and pushed with spontaneous vaginal delivery of a viable female over a second-degree midline laceration. Falling deliver the head from essentially straight 08 position head rest to to TOMMY and a nuchal cord 2 was noted and easily reduced. Anterior and posterior shoulders were then easily delivered without any problems or difficulties with gentle downward and upward traction. Mouth nares were then bulb suctioned falling deliver the baby a was then placed on mother's abdomen where the umbilical cord was allowed to pulsate for 30 seconds prior to clamping and cutting. Nursery personnel was present and assumed care. Cord blood was then obtained. Placenta was then delivered intact Pitocin was added to the IV. Secondary midline laceration was repaired with 3-0 Vicryl following 1% Xylocaine for analgesia. Both mother and baby are stable following delivery. Weight was 7 lbs. 14 oz. and scores aren't on the chart.
[2020-09-20] MEDS: IBUPROFEN 600 MG TAB PO PRN ×2 (16:32→22:04)
[2020-09-20] MEDS: SENNOSIDES-DOCUSATE SODIUM 1 EACH TAB PO SCH (20:09)
[2020-09-20] MEDS: AMPICILLIN 1,000 MG in SODIUM CHLORIDE 0.9% 50 ML IVPB SCH (23:33)
[2020-09-21] MEDS: ACETAMINOPHEN TAB 325 MG TAB PO PRN ×2 (03:25→13:20)
[2020-09-21 08:00] LABS: Basophils % (A) 0 %; Eosinophils # (A) 0.1 k/uL (0-0.7); Eosinophils % (A) 1 %; HCT 32.1 % (34.0-46.0); HGB 10.5 gm/dL (11.4-16.0); Lymphocytes % (A) 27 %; MCH 27.4 pg (25.0-35.0); MCHC 32.7 g/dL (31.0-37.0); MCV 83.7 fL (80.0-100.0); Mean Platelet Volume 7.1; Monocytes # (A) 0.3 k/uL (0-1.0); Monocytes % (A) 4 %; Neutrophils # (A) 4.8 k/uL (1.3-7.7); Neutrophils % (A) 67 %; Platelet Count 258 k/uL (150-450); RBC 3.84 m/uL (3.80-5.40); RDW 15.2 % (11.5-15.5); WBC 7.2 k/uL (3.8-10.6)
[2020-09-21] MEDS: IBUPROFEN 600 MG TAB PO PRN ×2 (08:24→19:31)
[2020-09-21] MEDS: SENNOSIDES-DOCUSATE SODIUM 1 EACH TAB PO SCH ×2 (08:24→19:32)
--- NOTE | 2020-09-21 11:33 | P.PNOBGVD ---
Subjective - Subjective Principal diagnosis: day 1 Interval history: Doing well. Ambulating and voiding tolerating her diet. Voicing no complaints. We'll continue care for now. Patient reports: Reports appetite normal Harrison: doing well Objective - Latest Vital Signs Latest vital signs: Vital Signs Temp Pulse Resp BP 09/21/20 08:00 98.4 F 93 16 102/67 09/21/20 00:00 98.4 F 76 16 90/57 09/20/20 20:00 98.0 F 87 16 96/53 09/20/20 16:20 98.2 F 64 16 105/56 09/20/20 13:08 74 16 113/78 09/20/20 12:38 68 16 101/56 09/20/20 12:08 98.0 F 81 16 109/63 09/20/20 11:53 71 16 108/60 09/20/20 11:38 82 16 109/67 Intake and Output 09/20/20 09/21/20 09/21/20 22:59 06:59 14:59 Other: # Voids 1 1 1 - Exam Lungs: bilateral: normal Chest: Normal S1, Normal S2 Extremities: Present: normal Abdomen: Present: normal appearance, soft Uterus: Present: normal, firm - Labs Labs: Abnormal Lab Results - Last 24 Hours (Table) 09/21/20 Range/Units 07:47 Hgb 10.5 L (11.4-16.0) gm/dL Hct 32.1 L (34.0-46.0) %
[2020-09-22] MEDS: IBUPROFEN 600 MG TAB PO PRN (07:58)
[2020-09-22] MEDS: SENNOSIDES-DOCUSATE SODIUM 1 EACH TAB PO SCH (07:58)
[2020-09-22 09:20] VITALS: BP 102/64; PULSE 88; TEMP 98.3
--- NOTE | 2020-09-22 10:17 | P.DS ---
Providers Date of admission: 09/20/20 07:27 Expected date of discharge: 09/22/20 Attending physician: Chey Go Primary care physician: Stated None Hospital Course: Mandi is doing very well this morning. She is ambulating, voiding and tolerating her diet. She voices no complaints and is requesting discharge home at this time. Vital signs are stable and she is afebrile. Heart regular, lungs clear, extremities are without pain. Abdomen is soft uterus is firm and lochia is reported to light. Assessment day 2. Plan discharged home follow up with Dr. Go in 6 weeks. Prescription for Motrin is 40 to the pharmacy. All the questions are answered for her at this time. Patient Condition at Discharge: Good Plan - Discharge Summary New Discharge Prescriptions: New Ibuprofen [Motrin] 600 mg PO Q6HR PRN #30 tab PRN Reason: Pain Discharge Medication List Ibuprofen [Motrin] 600 mg PO Q6HR PRN #30 tab 09/22/20 [Rx] Follow up Appointment(s)/Referral(s): Chey Go DO [Doctor of Osteopathic Medicine] - 6 Weeks Activity/Diet/Wound Care/Special Instructions: Heavy lifting, limit stairs and driving, pelvic rest. If any high temperatures, heavy bleeding, or severe pain call my office Discharge Disposition: HOME SELF-CARE
== END 2020-09-22 13:55 | disposition home or self-care (01) | DRG 807 ==
LOC: FBPOP 07:09 → 4FBP 07:27
PROVIDERS: ADMIT Obstetrics & Gynecology; ATTEND Obstetrics & Gynecology
PROC: 10E0XZZ Delivery of Products of Conception, External Approach (ICD-10-PCS; principal; 2020-09-20)
PROC: 0KQM0ZZ Repair Perineum Muscle, Open Approach (ICD-10-PCS; principal; 2020-09-20)
DX: O69.81X0 Labor and delivery complicated by cord around neck, without compression, not applicable or unspecified (principal); Z37.0 Single live birth; O70.1 Second degree perineal laceration during delivery; O99.334 Smoking (tobacco) complicating childbirth; F17.210 Nicotine dependence, cigarettes, uncomplicated; Z3A.39 39 weeks gestation of pregnancy
CPT/HCPCS: 59025; 84112; 85025; 86850; 86900; 86901; 99213

== ENCOUNTER 2022-04-02 13:37 | Outpatient (CLI) | payer OTHER ==
[2022-04-02 14:24] LABS: Appearance,Urine Clear (Clear); Bacteria,Urine Rare /hpf; Bilirubin,Urine Negative (Negative); Blood,Urine Negative (Negative); Color,Urine Yellow; Glucose,Urine (UA) Negative (Negative); Ketones,Urine Trace (Negative); Leukocyte Esterase,Urine Moderate (Negative); Mucus,Urine Rare /hpf; Nitrite,Urine Negative (Negative); Protein,Urine Negative (Negative); RBC,Urine <1 /hpf (0-5); Specific Gravity,Urine 1.017 (1.001-1.035); Squamous Epithelial Cell,Urine 6 /hpf (0-4); WBC,Urine 3 /hpf (0-5)
[2022-04-02 14:26] LABS: Amphetamine Screen,Urine Not Detected (NotDetected); Barbiturate Screen,Urine Not Detected (NotDetected); Benzodiazepines Screen,Urine Not Detected (NotDetected); Cocaine Screen,Urine Not Detected (NotDetected); Methadone Screen, Urine Not Detected (NotDetected); Opiate Screen,Urine Not Detected (NotDetected); Oxycodone Screen, Urine Not Detected (NotDetected); Phencyclidine Screen,Urine Not Detected (NotDetected); Tricyclic Antidepressant,Urine Not Detected (NotDetected); Urn Cannabinoid Scrn Not Detected (NotDetected)
[2022-04-02 17:50] VITALS: BP 108/61; PULSE 91; RESP 16; TEMP 98.4
--- NOTE | 2022-04-02 21:49 | P.MSEPDOC ---
Presenting Problems - Arrival Data Date of Arrival on Unit: 04/02/22 Time of Arrival on Unit: 13:40 Mode of Transport: Wheelchair - Complaint OB-Reason for Admission/Chief Complaint: Possible Onset of Labor, Signs/Symptoms UTI Comment: pelvic pressure Medical History - Information : 4 Para: 3 Term: 3 : 0 Abortions: Spontaneous or Elective: 0 Number of Living Children: 3 - Gestational Age Gestational Age by SHITAL (wks/days): 38 Weeks and 5 Days - History Comment: late to establish care 26 weeks Review of Systems - Review of Systems Constitutional: No problems Breast: No problems ENT: No problems Cardiovascular: No problems Respiratory: No problems Gastrointestinal: No problems Genitourinary: No problems Musculoskeletal: No problems Neurological: No problems Skin: No problems Vital Signs - Temperature Temperature: 98.4 F Temperature Source: Temporal Artery Scan - Pulse Right Pulse Rate: 91 Pulse Assessment Method: Automatic Cuff - Respirations Respiratory Rate: 16 Oxygen Delivery Method: Room Air O2 Sat by Pulse Oximetry: 98 - Blood Pressure Right Arm Blood Pressure: 108/61 Blood Pressure Mean: 76 Blood Pressure Source: Automatic Cuff Medical Screen Scoring - Cervical Exam Dilation (cm): 4 Effacement (%): 0 Station: -3 Membranes: Intact - Uterine Contractions Frequency From (mins): 2 Frequency To (mins): 3 Duration From (seconds): 30 Duration To (seconds): 70 Intensity: Mild Resting: Soft to palpation - Assessment - Baby A Baseline FHR: 125 Heart Rate - NICHD Category: Category II (Indeterminate) NST: Reactive Physician Notification - Physician Notified Physician Notified Date: 04/02/22 Physician Notified Time: 15:41 Physician: Greg Martinez New Order Received: Yes (monitor in triage, will come check her cervix after office) Maternal Triage Index - Maternal Triage Index Presenting for scheduled procedure w/no complaint: No - Stat/Priority 1 Stat Priority 1: No - Urgent/Priority 2 Urgent Priority 2: No - Prompt/Priority 3 Prompt Priority 3: No - Non-Urgent/Priority 4 Non-Urgent Priority 4: Yes Criteria Met for Priority 4: 38 weeks contractions and pressure Disposition - Disposition OB Disposition: Triage, Discharge to home, Written follow up instructions reviewed Discharge Date: 04/02/22 Discharge Time: 17:00 I agree with the RN Medical Screening Exam: Yes Case reviewed; plan agreed upon as documented in EMR&OBIX.: Yes Diagnosis: FALSE LABOR AT OR AFTER 37 COMPLETED WEEKS OF GESTATION (Patient presents to labor and delivery with complaints of pressure. Cervix is approximately 3-4 cm dilated and thick and very high. She is only feeling rare contractions. She was observed for approximately 2 hours without significant change felt be stable for discharge home follow up as scheduled. I did discuss with her signs and symptoms of labor and indications to return.)
== END 2022-04-02 17:00 | disposition home or self-care (01) ==
LOC: FBPOP 13:37
PROVIDERS: ATTEND Obstetrics & Gynecology
DX: O47.1 False labor at or after 37 completed weeks of gestation (principal); Z3A.38 38 weeks gestation of pregnancy
CPT/HCPCS: 59025; 81001; 80306; G0463; 99213

== ENCOUNTER 2022-04-08 21:29 | Outpatient (CLI) | payer OTHER ==
[2022-04-09 00:08] VITALS: BP 105/66; PULSE 85; RESP 16; TEMP 98.2
--- NOTE | 2022-04-15 08:32 | P.MSEPDOC ---
Presenting Problems - Arrival Data Date of Arrival on Unit: 04/08/22 Time of Arrival on Unit: 21:40 Mode of Transport: Ambulatory - Complaint OB-Reason for Admission/Chief Complaint: Possible Onset of Labor Comment: Patient states she is having contractions since 1700, 3-5 minutes apart. Patient is rating the pain as a 6/10. Medical History - Information : 4 Para: 3 Term: 3 : 0 Abortions: Spontaneous or Elective: 0 Number of Living Children: 3 - Gestational Age Gestational Age by SHITAL (wks/days): 39 Weeks and 5 Days - History Complications: Smoker Review of Systems - Review of Systems Constitutional: No problems Breast: No problems ENT: No problems Cardiovascular: No problems Respiratory: No problems Gastrointestinal: No problems Genitourinary: No problems Musculoskeletal: No problems Neurological: No problems Skin: No problems Vital Signs - Temperature Temperature: 98.2 F Temperature Source: Oral - Pulse Right Brachial Pulse Rate: 85 Pulse Assessment Method: Automatic Cuff - Respirations Respiratory Rate: 16 Oxygen Delivery Method: Room Air O2 Sat by Pulse Oximetry: 97 - Blood Pressure Right Arm Blood Pressure: 105/66 Blood Pressure Mean: 79 Blood Pressure Source: Automatic Cuff Medical Screen Scoring - Cervical Exam Dilation (cm): 5 Effacement (%): 90 Station: -2 Membranes: Intact - Uterine Contractions Frequency From (mins): 5 Frequency To (mins): 25 Duration From (seconds): 30 Duration To (seconds): 30 Intensity: Mild Resting: Soft to palpation - Assessment - Baby A Baseline FHR: 135 Heart Rate - NICHD Category: Category I (Normal) NST: Reactive Physician Notification - Physician Notified Physician Notified Date: 04/08/22 Physician Notified Time: 22:09 Physician: Greg Martinez New Order Received: Yes Maternal Triage Index - Maternal Triage Index Presenting for scheduled procedure w/no complaint: No - Stat/Priority 1 Stat Priority 1: No - Urgent/Priority 2 Urgent Priority 2: No - Prompt/Priority 3 Prompt Priority 3: No - Non-Urgent/Priority 4 Non-Urgent Priority 4: Yes Criteria Met for Priority 4: >37 weeks early labor signs Disposition - Disposition OB Disposition: Discharge to home Discharge Date: 04/09/22 Discharge Time: 22:16 I agree with the RN Medical Screening Exam: Yes Case reviewed; plan agreed upon as documented in EMR&OBIX.: Yes Diagnosis: PRIMARY INADEQUATE CONTRACTIONS
== END 2022-04-08 22:20 | disposition home or self-care (01) ==
LOC: FBPOP 21:29
PROVIDERS: ATTEND Obstetrics & Gynecology
DX: O62.0 Primary inadequate contractions (principal); Z3A.39 39 weeks gestation of pregnancy; Z87.891 Personal history of nicotine dependence
CPT/HCPCS: 59025; 99213

== ENCOUNTER 2022-04-10 08:50 | Inpatient (IN) | payer OTHER ==
[2022-04-10] MEDS ORDERED: TERBUTALINE 1 MG/ML VIAL SQ PRN (09:14)
[2022-04-10] MEDS ORDERED: LIDOCAINE 0.5% (PF) 5 MG/ML (50 ML SDV) SQ PRN (09:14)
[2022-04-10] MEDS ORDERED: CARBOPROST TROMETHAMINE 250 MCG/ML 1 ML AMP IM PRN (09:14)
[2022-04-10] MEDS ORDERED: OXYTOCIN 10 UNIT/ML 1 ML VIAL IM PRN (09:14)
[2022-04-10] MEDS ORDERED: METHYLERGONOVINE 0.2 MG/ML 1 ML AMP IM PRN (09:14)
[2022-04-10] MEDS ORDERED: OXYTOCIN 30 UNITS/500 ML NS 30 UNIT in SALINE 1 500ML.BAG IV SCH ×2 (09:15→12:47)
[2022-04-10] MEDS: LACTATED RINGERS 1,000 ML IV SCH ×3 (09:20→11:45)
[2022-04-10 10:21] LABS: Basophils % (A) 0 %; Eosinophils # (A) 0.1 k/uL (0-0.7); Eosinophils % (A) 1 %; HCT 35.1 % (34.0-46.0); HGB 11.2 gm/dL (11.4-16.0); Lymphocytes # (A) 1.7 k/uL (1.0-4.8); Lymphocytes % (A) 23 %; MCH 27.3 pg (25.0-35.0); MCHC 31.9 g/dL (31.0-37.0); MCV 85.6 fL (80.0-100.0); Mean Platelet Volume 8.2; Monocytes # (A) 0.3 k/uL (0-1.0); Monocytes % (A) 3 %; Neutrophils # (A) 5.2 k/uL (1.3-7.7); Neutrophils % (A) 71 %; Platelet Count 310 k/uL (150-450); RDW 14.6 % (11.5-15.5); WBC 7.2 k/uL (3.8-10.6)
[2022-04-10] MEDS ORDERED: ROPIVACAINE 5MG/ML 20ML VIAL ONE (10:47)
[2022-04-10] MEDS ORDERED: fentaNYL (PF) 50 MCG/ML 5 ML AMP ONE (10:47)
[2022-04-10] MEDS ORDERED: SODIUM CHLORIDE 0.9% 100 ML BAG ONE (10:47)
[2022-04-10 11:10] LABS: Amphetamine Screen,Urine Not Detected (NotDetected); Barbiturate Screen,Urine Not Detected (NotDetected); Benzodiazepines Screen,Urine Not Detected (NotDetected); Cocaine Screen,Urine Not Detected (NotDetected); Methadone Screen, Urine Not Detected (NotDetected); Opiate Screen,Urine Not Detected (NotDetected); Oxycodone Screen, Urine Not Detected (NotDetected); Phencyclidine Screen,Urine Not Detected (NotDetected); Tricyclic Antidepressant,Urine Not Detected (NotDetected); Urn Cannabinoid Scrn Not Detected (NotDetected)
[2022-04-10] MEDS ORDERED: AMPICILLIN 2,000 MG in SODIUM CHLORIDE 0.9% 100 ML IVPB STA (12:16)
--- NOTE | 2022-04-10 12:16 | P.HPOB ---
History of Present Illness H&P Date: 04/10/22 Chief Complaint: Leaking fluid This patient is a 26-year-old 4 para 3 female estimated date of confinement 04/11/2022 estimated gestational age 39-6/7 weeks who presents to labor and delivery with complaints of gush of fluid this morning. care is per Dr. Go appears to be complicated by late to seek care. Patient also has been using tobacco and marijuana throughout the . Patient's found to be grossly ruptured with active labor. Patient does have a previous son with muscular dystrophy and has not had any genetic testing. Patient also does not have custody 2 of her children. Review of Systems Genitourinary: Reports Menstruation: Reports amenorrhea Past Medical History Past Medical History: No Reported History Additional Past Medical History / Comment(s): Obstetric history she's had 3 previous vaginal deliveries. History of Any Multi-Drug Resistant Organisms: None Reported Past Surgical History: No Surgical Hx Reported Past Anesthesia/Blood Transfusion Reactions: No Reported Reaction Past Psychological History: Depression Smoking Status: Smoker, current status unknown Past Alcohol Use History: None Reported Additional Past Alcohol Use History / Comment(s): 1ppd from age 15 Past Drug Use History: Marijuana - Past Family History Mother Family Medical History: No Reported History Medications and Allergies Home Medications Medication Instructions Recorded Confirmed Type No Known Home Medications 04/02/22 04/10/22 History Allergies Allergy/AdvReac Type Severity Reaction Status Date / Time No Known Allergies Allergy Verified 04/10/22 09:12 Exam Vital Signs Temp Pulse Resp BP Pulse Ox 04/10/22 09:57 96.8 F L 77 18 114/69 99 04/10/22 09:11 96.8 F L 77 18 114/69 99 Intake and Output 04/09/22 04/10/22 04/10/22 22:59 06:59 14:59 Other: Weight 113.852 kg - OBG Physical Exam Abdomen: bowel sounds normal, no diffuse tenderness, no bruit present, no guarding noted, no hepatomegaly, no splenomegaly, no mass Vulva: both: normal Vagina: normal moisture, no discharge Cervix: no lesion (Cervix is 7-8 completely effaced 0 station), no discharge Uterus: enlarged (Fundal height in the office per Dr. Go was 36 cm) Results Result Diagrams: 04/10/22 09:50 Abnormal Lab Results - Last 24 Hours (Table) 04/10/22 Range/Units 09:50 Hgb 11.2 L (11.4-16.0) gm/dL Assessment and Plan Assessment: This is a 26-year-old 4 para 3 female 39-6/7 weeks gestation with spo ntaneous rupture membranes in active labor. Patient is a negative group B strep this but a history of positive with previous . Patient also has some custody issues with previous children in late to seek care, history of marijuana use. Plan is antibiotic prophylaxis and anticipate vaginal delivery. library services dean consult will be obtained. (1) 39 weeks gestation of Current Visit: No Status: Acute Code(s): Z3A.39 - 39 WEEKS GESTATION OF SNOMED Code(s): 84054062 (2) Group B Streptococcus carrier, +RV culture, currently Current Visit: No Status: Acute Code(s): O99.820 - STREPTOCOCCUS B CARRIER STATE COMPLICATING SNOMED Code(s): 1183102768342 (3) Normal labor Current Visit: No Status: Acute Code(s): O80 - ENCOUNTER FOR FULL-TERM UNCOMPLICATED DELIVERY; Z37.9 - OUTCOME OF DELIVERY, UNSPECIFIED SNOMED Code(s): 11549231
[2022-04-10] MEDS ORDERED: ACETAMINOPHEN TAB 325 MG TAB PO PRN (12:47)
[2022-04-10] MEDS ORDERED: HYDROCORTISONE 2.5% RECTAL CREAM 30 GM TUBE RECTAL PRN (12:47)
[2022-04-10] MEDS ORDERED: SIMETHICONE 80 MG CHEWABLE PO PRN (12:47)
[2022-04-10] MEDS ORDERED: ZOLPIDEM 5 MG TAB PO PRN (12:47)
[2022-04-10] MEDS ORDERED: diphenhydrAMINE 50 MG/ML 1 ML VIAL IVP PRN (12:47)
[2022-04-10] MEDS ORDERED: diphenhydrAMINE 25 MG CAP PO PRN (12:47)
[2022-04-10] MEDS ORDERED: LANOLIN CREAM 5 GM TUBE TOPICAL PRN (12:47)
[2022-04-10] MEDS ORDERED: bisacodyL 10 MG SUPP RECTAL PRN (12:47)
[2022-04-10] MEDS ORDERED: BENZOCAINE/MENTHOL SPRAY 1 GM/SPRAY AEROSOL TOPICAL PRN (12:47)
--- NOTE | 2022-04-10 18:23 | P.PROBDLV ---
Vaginal Delivery Note - . Vaginal Delivery Note: Normal spontaneous vaginal delivery viable male infant Apgars 8 and 9 delivery time is 1232 hrs. Please see dictated H&P for intimate details this patient's admission. Brief summary this 26-year-old 4 para 3 female 39-6/7 weeks gestation admitted to labor and delivery spontaneous rupture membranes earlier this morning. Arrival patient's 5 cm dilated. Patient's labor progresses and she does get an epidural for pain control. Patient progresses quickly gets to complete. She pushes the head to the perineum posterior perineum is supported controlled delivery of 's head over the intact perineum. Mouth and nares are bulb suctioned. There is a nuchal cord 1 which is reduced. With gentle downward traction we then have deliver the anterior and posterior shoulder and rest this 's body. This is a vigorous viable male Apgars are 8 and 9 delivery time is 1232 hrs. After delivery of the infant the umbilical cord is doubly clamped and cut appears to be trivascular. is late on the mother's abdomen. The placenta is then spontaneously delivered intact. Inspection of the perineum shows no lacerations and no repair. and mother stable delivery room. All counts correct 3. There are no complications.
[2022-04-10] MEDS: IBUPROFEN 600 MG TAB PO PRN (19:16)
[2022-04-11 06:30] LABS: Basophils % (A) 0 %; Eosinophils # (A) 0.1 k/uL (0-0.7); Eosinophils % (A) 2 %; HGB 10.3 gm/dL (11.4-16.0); Hypochromasia Slight; Lymphocytes # (A) 1.7 k/uL (1.0-4.8); Lymphocytes % (A) 28 %; MCHC 32.2 g/dL (31.0-37.0); MCV 86.7 fL (80.0-100.0); Mean Platelet Volume 7.9; Monocytes # (A) 0.2 k/uL (0-1.0); Monocytes % (A) 3 %; Neutrophils % (A) 66 %; Platelet Count 246 k/uL (150-450); RBC 3.69 m/uL (3.80-5.40); RDW 14.8 % (11.5-15.5)
[2022-04-11] MEDS: IBUPROFEN 600 MG TAB PO PRN ×2 (06:33→12:47)
--- NOTE | 2022-04-11 07:54 | P.PNOBGVD ---
Subjective - Subjective Patient reports: Reports appetite normal, Reports voiding normally, Reports pain well controlled, Reports ambulating normally : doing well Objective - Latest Vital Signs Latest vital signs: Vital Signs Temp Pulse Resp BP Pulse Ox 04/10/22 14:49 98 F 59 L 18 103/60 99 04/10/22 14:19 58 L 18 102/58 04/10/22 13:49 52 L 18 117/62 04/10/22 13:34 52 L 18 105/58 04/10/22 13:19 60 18 103/54 04/10/22 13:04 65 18 111/57 04/10/22 12:49 97.2 F L 73 18 108/54 04/10/22 09:57 96.8 F L 77 18 114/69 99 04/10/22 09:11 96.8 F L 77 18 114/69 99 - Exam Lungs: bilateral: normal Chest: Normal S1, Normal S2 Extremities: Present: normal Abdomen: Present: normal appearance, soft Uterus: Present: normal, firm - Labs Labs: Abnormal Lab Results - Last 24 Hours (Table) 04/10/22 04/11/22 Range/Units 09:50 06:02 RBC 3.69 L (3.80-5.40) m/uL Hgb 11.2 L 10.3 L (11.4-16.0) gm/dL Hct 32.0 L (34.0-46.0) % Assessment and Plan Assessment: day #1. Patient is resting without complaints. visitor services information assistant is currently in the process of investigating custody issues and home safety. Patient desires to stay today so we'll continue routine care and discharge home tomorrow. (1) 39 weeks gestation of Current Visit: No Status: Acute Code(s): Z3A.39 - 39 WEEKS GESTATION OF SNOMED Code(s): 82394198 (2) Group B Streptococcus carrier, +RV culture, currently Current Visit: No Status: Acute Code(s): O99.820 - STREPTOCOCCUS B CARRIER STATE COMPLICATING SNOMED Code(s): 7344806161422 (3) Normal labor Current Visit: No Status: Acute Code(s): O80 - ENCOUNTER FOR FULL-TERM UNCOMPLICATED DELIVERY; Z37.9 - OUTCOME OF DELIVERY, UNSPECIFIED SNOMED Code(s): 26248906
[2022-04-11 08:04] VITALS: RESP 16
[2022-04-11] MEDS: SENNOSIDES-DOCUSATE SODIUM 1 EACH TAB PO SCH ×2 (08:10→08:40)
[2022-04-11] MEDS: LACTATED RINGERS 1,000 ML IV SCH (10:01)
[2022-04-11 10:06] VITALS: BP 112/62; PULSE 70; TEMP 97.7
--- NOTE | 2022-04-11 12:38 | P.DS ---
Providers Date of admission: 04/10/22 09:16 Expected date of discharge: 04/11/22 Attending physician: Chey Go Primary care physician: Stated None - Discharge Diagnosis(es) (1) 39 weeks gestation of Current Visit: No Status: Acute (2) Group B Streptococcus carrier, +RV culture, currently Current Visit: No Status: Acute (3) Normal labor Current Visit: No Status: Acute Hospital Course: Please see dictated H&P for intimate details of this patient's admission. Brief summary this is a 26-year-old 4 para 3 female presents to labor and delivery with spontaneous rupture membranes in active labor. Patient was on have a vaginal delivery viable male infant. Please see dictated delivery note. day #1 patient wishes to go home was felt be stable for discharge home follow up with Dr. Go in 6 weeks Procedures: Normal spontaneous vaginal delivery Patient Condition at Discharge: Good Plan - Discharge Summary Discharge Rx Participant: Yes New Discharge Prescriptions: New Ibuprofen [Motrin] 600 mg PO Q6HR PRN #30 tab PRN Reason: Mild Pain (Scale 1 To 3) Discharge Medication List Ibuprofen [Motrin] 600 mg PO Q6HR PRN #30 tab 04/11/22 [Rx] Follow up Appointment(s)/Referral(s): Chey Go DO [Doctor of Osteopathic Medicine] - 05/21/22 3:45 pm Patient Instructions/Handouts: Vaginal Delivery (DC) Activity/Diet/Wound Care/Special Instructions: No intercourse or anything per vagina for 6 weeks. Please call if any fever, chills, excessive vaginal bleeding, and/or abdominal pain Discharge Disposition: HOME SELF-CARE
== END 2022-04-11 16:48 | disposition home or self-care (01) | DRG 807 ==
LOC: FBPOP 08:50 → 4FBP 09:16
PROVIDERS: ADMIT Obstetrics & Gynecology; ATTEND Obstetrics & Gynecology
PROC: 10E0XZZ Delivery of Products of Conception, External Approach (ICD-10-PCS; principal; 2022-04-10)
PROC: 00HU33Z Insertion of Infusion Device into Spinal Canal, Percutaneous Approach (ICD-10-PCS; principal; 2022-04-10)
PROC: 3E0R3NZ Introduction of Analgesics, Hypnotics, Sedatives into Spinal Canal, Percutaneous Approach (ICD-10-PCS; principal; 2022-04-10)
DX: O99.824 Streptococcus B carrier state complicating childbirth (principal); Z37.0 Single live birth; O69.81X0 Labor and delivery complicated by cord around neck, without compression, not applicable or unspecified; O99.344 Other mental disorders complicating childbirth; Z3A.39 39 weeks gestation of pregnancy; F32.A Depression, unspecified
CPT/HCPCS: 80306; 85025; 86850; 86900; 86901; 99213

== ENCOUNTER 2022-06-29 23:15 | Emergency (ER) | payer OTHER ==
[2022-06-29 23:42] VITALS: BP 134/85; PULSE 68; RESP 16; TEMP 98.6
--- NOTE | 2022-06-30 00:23 | ED ---
General Adult HPI - General Chief complaint: Recheck/Abnormal Lab/Rx Stated complaint: Covid Test Time Seen by Provider: 06/30/22 00:22 Source: patient Mode of arrival: ambulatory Limitations: no limitations - History of Present Illness Initial comments: Dictation was produced using [employer] dictation software. please excuse any grammatical, word or spelling errors. Chief Complaint: 26-year-old female presents to emergency department requesting coronavirus testing History of Present Illness: 26-year-old female presents emergency department for COVID-19 test. Patient requesting COVID-19 testing. She denies any symptoms. She has been exposed to her boyfriend with a suppository this morning. Been symptomatic only today. She has not really been exposed and today at work. The ROS documented in this emergency department record has been reviewed and confirmed by me. Those systems with pertinent positive or negative responses have been documented in the HPI. All other systems are other negative and/or noncontributory. PHYSICAL EXAM: General Impression: Alert and oriented x3, not in acute distress HEENT: Normocephalic atraumatic, extra-ocular movements intact, pupils equal and reactive to light bilaterally, mucous membranes moist. Cardiovascular: Heart regular rate and rhythm Chest: Able to complete full sentences, no retractions, no tachypnea Musculoskeletal: no peripheral edema Motor: no focal deficits noted Neurological: CN II-XII grossly intact, no focal motor or sensory deficits noted Skin: Intact with no visualized rashes Psych: Normal affect and mood ED course: 26-year-old asymptomatic female presents to the emergency department requesting COVID-19 test. Patient was exposed to her boyfriend who tested positive today after being symptomatic for today. Signs upon arrival are within acceptable limits. COVID-19 test is negative. Patient be discharged. - Related Data Previous Rx's Medication Instructions Recorded Ibuprofen [Motrin] 600 mg PO Q6HR PRN #30 tab 04/11/22 Allergies Allergy/AdvReac Type Severity Reaction Status Date / Time No Known Allergies Allergy Verified 06/29/22 23:40 Review of Systems ROS Statement: Those systems with pertinent positive or pertinent negative responses have been documented in the HPI. ROS Other: All systems not noted in ROS Statement are negative. Past Medical History Past Medical History: No Reported History Additional Past Medical History / Comment(s): Obstetric history she's had 3 previous vaginal deliveries. History of Any Multi-Drug Resistant Organisms: None Reported Past Surgical History: No Surgical Hx Reported Past Anesthesia/Blood Transfusion Reactions: No Reported Reaction Past Psychological History: Depression Smoking Status: Smoker, current status unknown Past Alcohol Use History: None Reported Past Drug Use History: Marijuana - Past Family History Mother Family Medical History: No Reported History General Exam Limitations: no limitations Course Vital Signs 06/29/22 23:40 Temperature 98.6 F Pulse Rate 68 Respiratory 16 Rate Blood Pressure 134/85 O2 Sat by Pulse 97 Oximetry Medical Decision Making - Lab Data Lab Results 06/29/22 Range/Units 23:43 Coronavirus (PCR) Not Detected (Not Detectd) Disposition Clinical Impression: Lab test negative for COVID-19 virus Disposition: HOME SELF-CARE Condition: Good Instructions (If sedation given, give patient instructions): COVID-19: Slow the Coronavirus Spread (ED) Is patient prescribed a controlled substance at d/c from ED?: No Referrals: Kayden Reynolds III, MD [Primary Care Provider] - 1-2 days Time of Disposition: 00:34
== END 2022-06-30 01:00 | disposition home or self-care (01) ==
LOC: EC 23:15
DX: Z20.822 Contact with and (suspected) exposure to COVID-19 (principal); F12.90 Cannabis use, unspecified, uncomplicated; F17.200 Nicotine dependence, unspecified, uncomplicated
CPT/HCPCS: 87635; 99283

== ENCOUNTER 2023-03-19 06:25 | Inpatient (IN) | payer OTHER ==
[2023-03-19] MEDS ORDERED: OXYTOCIN 10 UNIT/ML 1 ML VIAL IM PRN (06:48)
[2023-03-19] MEDS ORDERED: miSOPROStoL 200 MCG TAB PO PRN (06:48)
[2023-03-19] MEDS ORDERED: LACTATED RINGERS 1,000 ML IV SCH (07:00)
[2023-03-19] MEDS ORDERED: CARBOPROST TROMETHAMINE 250 MCG/ML 1 ML AMP IM ONE ×2 (07:16→07:44)
--- NOTE | 2023-03-19 07:25 | P.HPOB ---
History of Present Illness H&P Date: 03/19/23 Chief Complaint: Second trimester spontaneous Ms. Fernandez is a 27 year old who arrived at the emergency department with a chief complaint of a head being stuck in the vaginal after the body had delivered. The patient did not know she was and thinks her last menstrual period was approximately one month ago. Upon examination on arrival, the fetus was completely expelled in the patient's pants. The placenta is still in situ at this time. The patient has stable vitals. She has been given 1 dose of IM oxytocin 10 units and now once dose of 250 mcg of Hemabate to pass the placenta. Obstetric history: 4 full-term vaginal deliveries, all uncomplicated, last delivery 11 months ago. Of note, the patient does not have custody of 3 of these children. Medical history: Patient denies any medical conditions Medications: None Surgical history: None Social history: The patient vapes tobacco. Patient denies alcohol and recreational drug use. Allergies: None Past Medical History Past Medical History: No Reported History Additional Past Medical History / Comment(s): Obstetric history she's had 3 previous vaginal deliveries. History of Any Multi-Drug Resistant Organisms: None Reported Past Surgical History: No Surgical Hx Reported Past Anesthesia/Blood Transfusion Reactions: No Reported Reaction Past Psychological History: Depression Smoking Status: Vaper Past Alcohol Use History: None Reported Past Drug Use History: Marijuana - Past Family History Mother Family Medical History: No Reported History Medications and Allergies Home Medications Medication Instructions Recorded Confirmed Type No Known Home Medications 03/19/23 03/19/23 History Allergies Allergy/AdvReac Type Severity Reaction Status Date / Time No Known Allergies Allergy Verified 06/29/22 23:40 Exam Intake and Output 03/18/23 03/19/23 03/19/23 22:59 06:59 14:59 Other: Weight 108.862 kg On examination, this is a healthy-appearing female in no apparent distress. Vital signs are stable. There is an appropriately small collection of blood clots in between the legs with an umbilical cord seen at the introitus. With very gentle traction the placenta does not deliver. Examination of the vulva, introitus, and perineum shows no lacerations. Assessment and Plan Assessment: 27 year old 70 minutes s/p mid-second trimester spontaneous now with retained placenta Plan: Admit, NPO until delivery of the placenta, mIVF, hemabate 250 mcg q20 minutes up to 3 doses for retained placenta. CBC, T&S pending. UDS pending. Time with Patient: Greater than 30 (35 minutes)
[2023-03-19 07:26] LABS: Basophils % (A) 0 %; Eosinophils # (A) 0.1 k/uL (0-0.7); Eosinophils % (A) 1 %; HCT 31.1 % (34.0-46.0); HGB 10.3 gm/dL (11.4-16.0); Lymphocytes # (A) 1.3 k/uL (1.0-4.8); Lymphocytes % (A) 14 %; MCH 28.5 pg (25.0-35.0); MCHC 33.2 g/dL (31.0-37.0); MCV 85.8 fL (80.0-100.0); Mean Platelet Volume 8.6; Monocytes # (A) 0.3 k/uL (0-1.0); Monocytes % (A) 3 %; Neutrophils # (A) 7.8 k/uL (1.3-7.7); Neutrophils % (A) 82 %; Platelet Count 249 k/uL (150-450); RBC 3.62 m/uL (3.80-5.40); RDW 14.1 % (11.5-15.5); WBC 9.6 k/uL (3.8-10.6)
--- NOTE | 2023-03-19 08:17 | P.PN ---
Progress Note - Text Progress Note Date: 03/19/23 This is a 27 year old 2 hours from spontaneous second- trimester at unknown gestational age for fetus weighing 345 grams, delivery at 610. The patient is unsure when her last menstrual period was and thought she was having monthly menses throughout the . The fetus was fully expelled when the patient was examined upon arriving to the ER. Vaginal and vulvar exam was negative for lacerations. The placenta was still intact. Pitocin 10u IM x1 and Hemabate 250mcg IM q20 minutes x2 doses were given with delivery of an intact placenta at 800. Bleeding is stable . Fundus is firm, uterine size small. The patient would like to complete her recovery and t hen be discharged home to care for her 11 month at home. Placenta is sent to pathology. Patient declines autopsy. Plan is to complete her recovery and the discharge home.
[2023-03-19] MEDS ORDERED: IBUPROFEN 600 MG TAB PO PRN (08:38)
[2023-03-19] MEDS ORDERED: LOPERAMIDE 2 MG CAP PO STA (09:51)
[2023-03-19 11:13] LABS: Glucose,Urine (UA) Negative (Negative); Ketones,Urine 1+ (Negative); Protein,Urine Trace (Negative)
[2023-03-19 11:28] LABS: Amphetamine Screen,Urine Not Detected (NotDetected); Barbiturate Screen,Urine Not Detected (NotDetected); Benzodiazepines Screen,Urine Not Detected (NotDetected); Cocaine Screen,Urine Not Detected (NotDetected); Methadone Screen, Urine Not Detected (NotDetected); Opiate Screen,Urine Not Detected (NotDetected); Oxycodone Screen, Urine Not Detected (NotDetected); Phencyclidine Screen,Urine Not Detected (NotDetected); Tricyclic Antidepressant,Urine Not Detected (NotDetected); Urn Cannabinoid Scrn Detected (NotDetected)
[2023-03-19 11:53] VITALS: BP 102/65; PULSE 72; RESP 16; TEMP 97.8
--- NOTE | 2023-03-19 12:28 | P.DS ---
Providers Date of admission: 03/19/23 06:25 Expected date of discharge: 03/19/23 Attending physician: Sahra Cervantes MD Primary care physician: Stated None Hospital Course: This is a 27 year old female with no care who did not know she was and is unsure of her last menstrual period who presented to the ER with a partially expelled fetus. At 610 the fetus was completely expelled. The placenta was retained. To facilitate expulsion of the placenta 10 units of IM oxytocin and two doses of 250 mcg of hemabate were given with resulting delivery of the placenta at 800. Minimal bleeding was noted after delivery of the placenta. Placenta was sent for pathology. The fetus weighed 345 grams and is estimated to be between 18 to 20 weeks gestation. The patient declines autopsy. Hemoglobin is stable at 10, vitals are stable, and the patient is Rh positive. She desires discharge home at this time to care for her 11 month old infant. Pelvic rest is recommended for 6 weeks. Patient is instructed to call the office with concerns for heavy bleeding, foul smelling vaginal discharge, fever or any other concerns. She will follow up in 6 weeks. Patient Condition at Discharge: Good Plan - Discharge Summary New Discharge Prescriptions: No Action No Known Home Medications Discharge Medication List No Known Home Medications 03/19/23 [History] Follow up Appointment(s)/Referral(s): Sahra Cervantes MD [STAFF PHYSICIAN] - 6 Weeks
== END 2023-03-19 13:30 | disposition home or self-care (01) | DRG 564 ==
LOC: 4FBP 06:25
PROVIDERS: ADMIT Obstetrics & Gynecology; ATTEND Obstetrics & Gynecology
DX: O02.1 Missed abortion (principal); F32.A Depression, unspecified; F17.290 Nicotine dependence, other tobacco product, uncomplicated
CPT/HCPCS: 80306; 81003; 85025; 86850; 86900; 86901

== ENCOUNTER → 2023-12-09 | Outpatient (CLI) | payer OTHER ==
--- NOTE | 2023-12-09 13:40 | US ---
EXAMINATION TYPE: Transabdominal DATE OF EXAM: 12/09/2023 1:15 PM COMPARISON: NONE CLINICAL INDICATION: Female, 28 years old with history of [id number] FOR SUPRVSN OF NORMAL PREGNANC Y, UNSP; No symptoms. No ultrasound this . EXAM PERFORMED: Transabdominal (TA) EXAM MEASUREMENTS: GESTATIONAL AGE / DATING Physician Established: Not yet established Dates by LMP: LMP unknown Dates by First Scan: No previous this is first scan Dates by Current Scan for: (8 weeks/2 days) EDC: 07/18/2024 MATERNAL ANATOMY Uterus: 10.8 x 6.9 x 5.8 cm Right Ovary: 3.1 x 2.0 x 1.7 cm Left Ovary: 2.8 x 1.6 x 1.3 cm Post CDS / Adnexa: no free fluid Presence of free fluid: no Presence of corpus luteal cyst: right ovary = 1.7 x 1.6 x 1.4 cm Presence of subchorionic bleed: left uterus= 3.9 x 2.7 x 0.8 cm GESTATION / SURVEY CRL: 1.8 cm (8 weeks/2 days) MSD: Seen, not measured Yolk Sac (normal less than 6mm): 2.6 mm Heart Rate: 176 bpm Rhythm: Normal IUP: Viable IUP Date of LMP: Unknown, [id number] Beta HcG (if available): Not available at this time IMPRESSION: 1. Single viable intrauterine .
== END | disposition home or self-care (01) ==
LOC: RADUSWWP 12:27
PROVIDERS: ATTEND Obstetrics & Gynecology
DX: Z34.90 Encounter for supervision of normal pregnancy, unspecified, unspecified trimester (principal); Z33.1 Pregnant state, incidental
CPT/HCPCS: 76801

== ENCOUNTER 2023-12-28 12:36 | Emergency (ER) | payer OTHER ==
[2023-12-28 12:45] VITALS: BP 98/64; PULSE 76; RESP 16; TEMP 98.2
[2023-12-28 13:08] LABS: Appearance,Urine Clear (Clear); Bilirubin,Urine Negative (Negative); Blood,Urine Negative (Negative); Color,Urine Colorless; Glucose,Urine (UA) Negative (Negative); Ketones,Urine Negative (Negative); Leukocyte Esterase,Urine Moderate (Negative); Mucus,Urine Rare /hpf; Nitrite,Urine Negative (Negative); PH, Urine 6.5 (5.0-8.0); Protein,Urine Negative (Negative); Specific Gravity,Urine 1.013 (1.001-1.035); Squamous Epithelial Cell,Urine 2 /hpf (0-4); Urobilinogen,Urine <2.0 mg/dL (<2.0); WBC,Urine 4 /hpf (0-5)
--- NOTE | 2023-12-28 13:35 | ED ---
Back Pain HPI - General Chief Complaint: Back Pain/Injury Stated Complaint: back pain-11 weeks preg. Time Seen by Provider: 12/28/23 12:50 Source: patient, RN notes reviewed - History of Present Illness Initial Comments: Quick notekhadar is a 28-year-old female resents emergency department chief complaint of right mid back pain. She states this pain started today she denies hematuria, dysuria, urgency or frequency, vaginal bleeding, abdominal pain. - Related Data Home Medications Medication Instructions Recorded Confirmed No Known Home Medications 03/19/23 03/19/23 Allergies Allergy/AdvReac Type Severity Reaction Status Date / Time No Known Allergies Allergy Verified 12/28/23 12:44 Review of Systems ROS Statement: Those systems with pertinent positive or pertinent negative responses have been documented in the HPI. ROS Other: All systems not noted in ROS Statement are negative. Past Medical History Past Medical History: No Reported History Additional Past Medical History / Comment(s): Obstetric history she's had 3 previous vaginal deliveries. History of Any Multi-Drug Resistant Organisms: None Reported Past Surgical History: No Surgical Hx Reported Past Anesthesia/Blood Transfusion Reactions: No Reported Reaction Past Psychological History: Depression Smoking Status: Vaper Past Alcohol Use History: None Reported Past Drug Use History: Marijuana - Past Family History Mother Family Medical History: No Reported History General Exam - General Exam Comments Initial Comments: Visual Physical Exam Vital signs reviewed General: Well-appearing, nontoxic, no acute distress. Head: Normocephalic, atraumatic Eyes: PERRLA, EOMI ENT: Airway patent Chest: Nonlabored breathing Skin: No visual rash, normal skin tone Neuro: Alert and oriented 3 Musculoskeletal: No gross abnormalities Course Vital Signs 12/28/23 12:42 Temperature 98.2 F Pulse Rate 76 Respiratory 16 Rate Blood Pressure 98/64 O2 Sat by Pulse 98 Oximetry Medical Decision Making - Medical Decision Making I completed the quick note portion of this chart signed Marisel Coelho PA-C - Lab Data Lab Results 12/28/23 12/28/23 Range/Units 12:54 12:54 Urine Color Colorless Urine Appearance Clear (Clear) Urine pH 6.5 (5.0-8.0) Ur Specific [place] 1.013 (1.001-1.035) Urine Protein Negative (Negative) Urine Glucose (UA) Negative (Negative) Urine Ketones Negative (Negative) Urine Blood Negative (Negative) Urine Nitrite Negative (Negative) Urine Bilirubin Negative (Negative) Urine Urobilinogen <2.0 (<2.0) mg/dL Ur Leukocyte Esterase Moderate H (Negative) Urine WBC 4 (0-5) /hpf Ur Squamous Epith Cells 2 (0-4) /hpf Urine Mucus Rare H (None) /hpf Urine HCG, Qual Detected (Not Detectd) Disposition Clinical Impression: Left against medical advice Disposition: LEFT AGAINST MEDICAL ADVICE Condition: Undetermined Is patient prescribed a controlled substance at d/c from ED?: No Referrals: None,Stated [Primary Care Provider] - 1-2 days
== END 2023-12-28 15:21 | disposition left against medical advice (07) ==
LOC: EC 12:36
DX: O26.891 Other specified pregnancy related conditions, first trimester (principal); M54.9 Dorsalgia, unspecified; O99.331 Smoking (tobacco) complicating pregnancy, first trimester; O99.321 Drug use complicating pregnancy, first trimester; F12.90 Cannabis use, unspecified, uncomplicated; F17.290 Nicotine dependence, other tobacco product, uncomplicated; Z53.29 Procedure and treatment not carried out because of patient's decision for other reasons; Z3A.11 11 weeks gestation of pregnancy
CPT/HCPCS: 81001; 81025; 99283

== ENCOUNTER 2024-01-04 08:26 | Emergency (ER) | payer OTHER ==
[2024-01-04 08:47] VITALS: RESP 18; TEMP 98
--- NOTE | 2024-01-04 08:48 | ED ---
General Adult HPI - General Chief complaint: Abdominal Pain Stated complaint: vomiting-11wks preg Time Seen by Provider: 01/04/24 08:27 Source: patient Mode of arrival: ambulatory Limitations: no limitations - History of Present Illness Initial comments: Dictation was produced using [employer] dictation software. please excuse any grammatical, word or spelling errors. Chief Complaint: 28-year-old female with nausea vomiting diarrhea History of Present Illness: Patient 28-year-old female she is allegedly 12 weeks . She for the last several hours has been having nausea vomiting and diarrhea. She states that her emesis and diarrhea are watery. He does not black-red or green. Patient had some hungry hobbies yesterday. She states that she does have some mild epigastric pain in the upper abdomen. Denies any history of abdominal surgery. Patient has had 3 previous vaginal deliveries. This is patient's sixth . She does not currently have established care with [facility] when she has her first appointment coming up soon. Denies any fever, chills or night sweats. The ROS documented in this emergency department record has been reviewed and confirmed by me. Those systems with pertinent positive or negative responses have been documented in the HPI. All other systems are other negative and/or noncontributory. - Related Data Home Medications Medication Instructions Recorded Confirmed No Known Home Medications 03/19/23 03/19/23 Allergies Allergy/AdvReac Type Severity Reaction Status Date / Time No Known Allergies Allergy Verified 01/04/24 08:32 Review of Systems ROS Statement: Those systems with pertinent positive or pertinent negative responses have been documented in the HPI. ROS Other: All systems not noted in ROS Statement are negative. Past Medical History Past Medical History: No Reported History Additional Past Medical History / Comment(s): Obstetric history she's had 3 previous vaginal deliveries. History of Any Multi-Drug Resistant Organisms: None Reported Past Surgical History: No Surgical Hx Reported Past Anesthesia/Blood Transfusion Reactions: No Reported Reaction Past Psychological History: Depression Smoking Status: Vaper Past Alcohol Use History: None Reported Past Drug Use History: Marijuana - Past Family History Mother Family Medical History: No Reported History General Exam - General Exam Comments Initial Comments: PHYSICAL EXAM: General Impression: Alert and oriented x3, not in acute distress HEENT: Normocephalic atraumatic, extra-ocular movements intact, pupils equal and reactive to light bilaterally, mucous membranes moist. Cardiovascular: Heart regular rate and rhythm Chest: Able to complete full sentences, no retractions, no tachypnea Abdomen: abdomen soft, mild epigastric palpatory tenderness, non-distended, no organomegaly Musculoskeletal: Pulses present and equal in all extremities, no peripheral edema Motor: no focal deficits noted Neurological: CN II-XII grossly intact, no focal motor or sensory deficits noted Skin: Intact with no visualized rashes Psych: Normal affect and mood Pelvic exam: Refused Limitations: no limitations Course Vital Signs 01/04/24 01/04/24 08:27 10:26 Temperature 98.0 F Pulse Rate 87 92 Respiratory 18 18 Rate Blood Pressure 99/68 98/64 O2 Sat by Pulse 99 99 Oximetry Medical Decision Making - Medical Decision Making Was pt. sent in by a medical professional or institution (, PA, [employer], urgent care, hospital, or halfway...) When possible be specific @ -No Did you speak to anyone other than the patient for history (EMS, parent, family, police, friend...)? What history was obtained from this source @ -No Did you review nursing and triage notes (agree or disagree)? Why? @ -I reviewed and agree with nursing and triage notes Were old charts reviewed (outside hosp., previous admission, EMS record, old EKG, old radiological studies, urgent care reports/EKG's, halfway records)? Report findings @ -No old charts were reviewed Differential Diagnosis (chest pain, altered mental status, abdominal pain women, abdominal pain men, vaginal bleeding, musculoskeletal, weakness, fever, dyspnea, syncope, headache, dizziness, GI bleed, back pain, seizure, CVA, palpatations, mental health)? @ -Differential Abdominal Pain Women: Appendicitis, Cholecystitis, diverticulosis, ischemic bowel, pancreatitis, hepatitis, UTI, gastroenteritis, AAA, incarcerated hernia, bowel obstruction, constipation, inflammatory bowel, hepatitis, peptic ulcer disease, splenic infarction, perforated viscus, vulvitis, ovarian torsion, PID, kidney stone, placenta abruption, this is not meant to be an all-inclusive list EKG interpreted by me (3pts min.). @ -None done X-rays interpreted by me (1pt min.). @ -None done CT interpreted by me (1pt min.). @ -None done U/S interpreted by me (1pt. min.). @ - ultrasound is within acceptable limits. There does appear to be some subchorionic bleeding. Abdominal ultrasound shows sludge in gallbladder What testing was considered but not performed or refused? (CT, X-rays, U/S, labs)? Why? @ -None What meds were considered but not given or refused? Why? @ -None Did you discuss the management of the patient with other professionals (professionals i.e. , PA, [employer], lab, RT, psych nurse, healthcare social worker, textile coating machine operator, teacher, consumer loan officer, child support case officer)? Give summary @ -No Was smoking cessation discussed for >3mins.? @ -No Was critical care preformed (if so, how long)? @ -No Were there social determinants of health that impacted care today? How? (Homelessness, low income, unemployed, alcoholism, drug addiction, transportation, low edu. Level, literacy, decrease access to med. care, snf, rehab)? @ -No Was there de-escalation of care discussed even if they declined (Discuss DNR or withdrawal of care, Hospice)? DNR status @ -No What co-morbidities impacted this encounter? (DM, HTN, Smoking, COPD, CAD, Cancer, CVA, ARF, Chemo, Hep., AIDS, mental health diagnosis, sleep apnea, morbid obesity)? @ -None Was patient admitted / discharged? Hospital course, mention meds given and route, prescriptions, significant lab abnormalities, going to OR and other pertinent info. @ -28-year-old female with gastroenteritis. Vital signs upon arrival are within acceptable limits. Laboratory evaluation obtained. CBC metabolic panel is unremarkable. Abdominal labs are negative. Liver enzymes are normal. U rinalysis negative. Ultrasound shows intrauterine with subchorionic bleeding. Ultrasound showed gallbladder sludge. Patient reevaluated bedside at 10:27 AM vitamin stable medical addition. At the bedside she does not have any Torres sign. She denies any fever. No leukocytosis. Patient does not clinically correlate with acute cholecystitis. Patient feeling improved after IV fluids. She would like to be discharged. Patient told to follow-up closely with [facility]. She was notified of the equivocal radiology read of possible acute cholecystitis. She understands that she should return if she has any worsening symptoms. Undiagnosed new problem with uncertain prognosis? @ -No Drug Therapy requiring intensive monitoring for toxicity (Heparin, Nitro, Insulin, Cardizem)? @ -No Were any procedures done? @ -No Diagnosis/symptom? Acute, or Chronic, or Acute on Chronic? Uncomplicated (without systemic symptoms) or Complicated (systemic symptoms)? @ -Gastroenteritis Side effects of treatment? @ -No Exacerbation, Progression, or Severe Exacerbation? @ -No Poses a threat to life or bodily function? How? (Chest pain, USA, MT, pneumonia, PE, COPD, DKA, ARF, appy, cholecystitis, CVA, Diverticulitis, Homicidal, Suicidal, threat to staff... and all critical care pts) @ -No - Lab Data Result diagrams: 01/04/24 09:02 01/04/24 09:02 Lab Results 01/04/24 01/04/24 01/04/24 Range/Units 09:02 09:02 09:02 WBC 6.7 (3.8-10.6) k/uL RBC 4.49 (3.80-5.40) m/uL Hgb 12.5 (11.4-16.0) gm/dL Hct 38.4 (34.0-46.0) % MCV 85.4 (80.0-100.0) fL MCH 27.9 (25.0-35.0) pg MCHC 32.7 (31.0-37.0) g/dL RDW 14.1 (11.5-15.5) % Plt Count 259 (150-450) k/uL MPV 10.2 Neutrophils % 89 % Lymphocytes % 7 % Monocytes % 2 % Eosinophils % 2 % Basophils % 0 % Neutrophils # 5.9 (1.3-7.7) k/uL Lymphocytes # 0.5 L (1.0-4.8) k/uL Monocytes # 0.2 (0-1.0) k/uL Eosinophils # 0.1 (0-0.7) k/uL Basophils # 0.0 (0-0.2) k/uL Sodium 136 L (137-145) mmol/L Potassium 4.0 (3.5-5.1) mmol/L Chloride 106 (98-107) mmol/L Carbon Dioxide 22 (22-30) mmol/L Anion Gap 8 mmol/L BUN 11 (7-17) mg/dL Creatinine 0.44 L (0.52-1.04) mg/dL Est GFR (CKD-EPI)AfAm >90 (>60 ml/min/1.73 sqM) Est GFR (CKD-EPI)NonAf >90 (>60 ml/min/1.73 sqM) Glucose 107 H (74-99) mg/dL Calcium 9.2 (8.4-10.2) mg/dL Magnesium 1.8 (1.6-2.3) mg/dL Total Bilirubin 1.4 H (0.2-1.3) mg/dL AST 23 (14-36) U/L ALT 27 (4-34) U/L Alkaline Phosphatase 54 (38-126) U/L Total Protein 7.3 (6.3-8.2) g/dL Albumin 4.1 (3.5-5.0) g/dL Urine Color Yellow Urine Appearance Clear (Clear) Urine pH 6.5 (5.0-8.0) Ur Specific [place] 1.030 (1.001-1.035) Urine Protein Trace H (Negative) Urine Glucose (UA) Negative (Negative) Urine Ketones 1+ H (Negative) Urine Blood Negative (Negative) Urine Nitrite Negative (Negative) Urine Bilirubin Negative (Negative) Urine Urobilinogen <2.0 (<2.0) mg/dL Ur Leukocyte Esterase Small H (Negative) Urine RBC <1 (0-5) /hpf Urine WBC 2 (0-5) /hpf Ur Squamous Epith Cells 4 (0-4) /hpf Hyaline Casts 1 (0-2) /lpf Urine Mucus Moderate H (None) /hpf Blood Type Blood Type Recheck Bld Type Recheck Status Antibody Screen Spec Expiration Date 01/04/24 Range/Units 09:02 WBC (3.8-10.6) k/uL RBC (3.80-5.40) m/uL Hgb (11.4-16.0) gm/dL Hct (34.0-46.0) % MCV (80.0-100.0) fL MCH (25.0-35.0) pg MCHC (31.0-37.0) g/dL RDW (11.5-15.5) % Plt Count (150-450) k/uL MPV Neutrophils % % Lymphocytes % % Monocytes % % Eosinophils % % Basophils % % Neutrophils # (1.3-7.7) k/uL Lymphocytes # (1.0-4.8) k/uL Monocytes # (0-1.0) k/uL Eosinophils # (0-0.7) k/uL Basophils # (0-0.2) k/uL Sodium (137-145) mmol/L Potassium (3.5-5.1) mmol/L Chloride (98-107) mmol/L Carbon Dioxide (22-30) mmol/L Anion Gap mmol/L BUN (7-17) mg/dL Creatinine (0.52-1.04) mg/dL Est GFR (CKD-EPI)AfAm (>60 ml/min/1.73 sqM) Est GFR (CKD-EPI)NonAf (>60 ml/min/1.73 sqM) Glucose (74-99) mg/dL Calcium (8.4-10.2) mg/dL Magnesium (1.6-2.3) mg/dL Total Bilirubin (0.2-1.3) mg/dL AST (14-36) U/L ALT (4-34) U/L Alkaline Phosphatase (38-126) U/L Total Protein (6.3-8.2) g/dL Albumin (3.5-5.0) g/dL Urine Color Urine Appearance (Clear) Urine pH (5.0-8.0) Ur Specific [place] (1.001-1.035) Urine Protein (Negative) Urine Glucose (UA) (Negative) Urine Ketones (Negative) Urine Blood (Negative) Urine Nitrite (Negative) Urine Bilirubin (Negative) Urine Urobilinogen (<2.0) mg/dL Ur Leukocyte Esterase (Negative) Urine RBC (0-5) /hpf Urine WBC (0-5) /hpf Ur Squamous Epith Cells (0-4) /hpf Hyaline Casts (0-2) /lpf Urine Mucus (None) /hpf Blood Type O Positive Blood Type Recheck O Pos Bld Type Recheck Status No Antibody Screen NEGATIVE Spec Expiration Date 01/07/20242301 Disposition Clinical Impression: Gastroenteritis Disposition: HOME SELF-CARE Condition: Fair Instructions (If sedation given, give patient instructions): Gastroenteritis (ED) Is patient prescribed a controlled substance at d/c from ED?: No Referrals: None,Stated [Primary Care Provider] - 1-2 days Time of Disposition: 10:28
[2024-01-04] MEDS: METOCLOPRAMIDE 5 MG/ML 2 ML VIAL IVP STA (08:58)
[2024-01-04] MEDS: SODIUM CHLORIDE 0.9% 1,000 ML IV STA (08:58)
[2024-01-04 09:24] LABS: Basophils % (A) 0 %; Eosinophils # (A) 0.1 k/uL (0-0.7); Eosinophils % (A) 2 %; HCT 38.4 % (34.0-46.0); HGB 12.5 gm/dL (11.4-16.0); Lymphocytes # (A) 0.5 k/uL (1.0-4.8); Lymphocytes % (A) 7 %; MCH 27.9 pg (25.0-35.0); MCHC 32.7 g/dL (31.0-37.0); MCV 85.4 fL (80.0-100.0); Mean Platelet Volume 10.2; Monocytes # (A) 0.2 k/uL (0-1.0); Monocytes % (A) 2 %; Neutrophils # (A) 5.9 k/uL (1.3-7.7); Neutrophils % (A) 89 %; Platelet Count 259 k/uL (150-450); RBC 4.49 m/uL (3.80-5.40); RDW 14.1 % (11.5-15.5); WBC 6.7 k/uL (3.8-10.6)
[2024-01-04 09:42] LABS: ALT 27 U/L (4-34); AST 23 U/L (14-36); African American GFR (CKD) >90 (>60 ml/min/1.73 sqM); Albumin 4.1 g/dL (3.5-5.0); Alkaline Phosphatase 54 U/L (38-126); Anion Gap 8 mmol/L; Blood Urea Nitrogen 11 mg/dL (7-17); Calcium 9.2 mg/dL (8.4-10.2); Carbon Dioxide 22 mmol/L (22-30); Chloride 106 mmol/L (98-107); Glucose 107 mg/dL (74-99); Magnesium 1.8 mg/dL (1.6-2.3); Non-African American GFR(CKD) >90 (>60 ml/min/1.73 sqM); Sodium 136 mmol/L (137-145); Total Bilirubin 1.4 mg/dL (0.2-1.3); Total Protein 7.3 g/dL (6.3-8.2)
[2024-01-04 09:51] LABS: Appearance,Urine Clear (Clear); Bilirubin,Urine Negative (Negative); Blood,Urine Negative (Negative); Color,Urine Yellow; Glucose,Urine (UA) Negative (Negative); Hyaline Casts,Urine 1 /lpf (0-2); Ketones,Urine 1+ (Negative); Leukocyte Esterase,Urine Small (Negative); Mucus,Urine Moderate /hpf; Nitrite,Urine Negative (Negative); PH, Urine 6.5 (5.0-8.0); Protein,Urine Trace (Negative); RBC,Urine <1 /hpf (0-5); Squamous Epithelial Cell,Urine 4 /hpf (0-4); Urobilinogen,Urine <2.0 mg/dL (<2.0); WBC,Urine 2 /hpf (0-5)
--- NOTE | 2024-01-04 09:59 | US ---
EXAMINATION TYPE: US abdomen limited DATE OF EXAM: 01/04/2024 COMPARISON: NONE CLINICAL INDICATION: Female, 28 years old with history of epigastric pain; Vomiting ? flu TECHNIQUE: Multiple sonographic images of the right upper quadrant are obtained. FINDINGS: EXAM MEASUREMENTS: Liver Length: 17.2 cm Gallbladder Wall: 0.3 cm CBD: 0.1 cm Right Kidney: 10.4 x 5.1 x 5.8 cm SPRINKLER REPAIR TECHNICIAN NOTES: Pancreas: Tail obscured by overlying bowel gas Liver: Increased attenuation Gallbladder: Stones vs sludge ball seen Evidence for sonographic Torres's sign: Yes, Patient stated must be the flu CBD: wnl Right Kidney: Limited visualization IMPRESSION: 1. Gallstone and/or sludge within the gallbladder. No gallbladder wall thickening identified. Clinica l correlation recommended for acute cholecystitis. 2. Exam is limited due to body habitus and bowel gas.
--- NOTE | 2024-01-04 10:01 | US ---
EXAMINATION TYPE: Transabdominal DATE OF EXAM: 01/04/2024 9:27 AM COMPARISON: US 12/09/2023 CLINICAL INDICATION: Female, 28 years old with history of pelvic pain; Vomiting ? Flu EXAM PERFORMED: Transabdominal (TA) EXAM MEASUREMENTS: GESTATIONAL AGE / DATING Physician Established: (12 weeks/0 days) EDC: 07/18/2024 Dates by LMP: ( weeks/ days) EDC: Dates by First Scan: (12 weeks/0 days) EDC: 07/18/2024 Dates by Current Scan for: (12 weeks/2 days) EDC: 07/16/2024 MATERNAL ANATOMY Uterus: 12.6 x 8.8 x 10.1 cm Right Ovary: 2.9 x 2.7 x 2.6 cm Left Ovary: 3.6 x 1.5 x 1.8 cm Post CDS / Adnexa: WNL Presence of free fluid: No Presence of corpus luteal cyst: No Presence of subchorionic bleed: Yes = 1.3 x 2.3 x 1.5 cm GESTATION / SURVEY CRL: 56.39 mm (12 weeks/2 days) MSD: NA ( weeks/ days) Yolk Sac (normal less than 6mm): Not seen Heart Rate: 161 bpm Rhythm: Normal IUP: Viable IUP Nuchal Translucency 10-14wks (normal less than 3mm): Not able to obtain Age Appropriate Anatomy Cord Insertion: Too early to visualize Limbs: Visualized Calvarium: Visualized Date of LMP: NA Beta HcG (if available): Not available at this time IMPRESSION: 1. Single gestation estimated at 12 weeks 2 days gestation based on crown-rump length. Cardiac activi ty measures 161 bpm. 2. A 1.3 x 2.3 x 1.5 cm subchorionic hemorrhage is present.
[2024-01-04 11:06] VITALS: BP 98/64; PULSE 92
== END 2024-01-04 10:37 | disposition home or self-care (01) ==
LOC: EC 08:26
DX: O99.611 Diseases of the digestive system complicating pregnancy, first trimester (principal); O99.331 Smoking (tobacco) complicating pregnancy, first trimester; K52.9 Noninfective gastroenteritis and colitis, unspecified; F17.290 Nicotine dependence, other tobacco product, uncomplicated; Z3A.12 12 weeks gestation of pregnancy
CPT/HCPCS: 36415; 86900; 86901; 80053; 83735; 85025; 86850; 81001; 76705; 76801; 99284; 96374; 96361; J2765

== ENCOUNTER 2024-06-20 12:32 | Outpatient (CLI) | payer OTHER ==
[2024-06-20 13:57] VITALS: BP 101/57; PULSE 74; RESP 16; TEMP 97.5
--- NOTE | 2024-06-22 18:28 | P.MSEPDOC ---
Presenting Problems - Arrival Data Date of Arrival on Unit: 06/20/24 Time of Arrival on Unit: 12:32 Mode of Transport: Ambulatory - Complaint OB-Reason for Admission/Chief Complaint: Possible Onset of Labor Comment: Pt presents to triage with c/o contx that started about 40 minutes ago, but has since resolved. Pt wanted to get checked out Medical History - Information : 6 Para: 4 Term: 4 : 1 Abortions: Spontaneous or Elective: 0 Number of Living Children: 4 - Gestational Age Gestational Age by SHITAL (wks/days): 36 Weeks and 0 Days Review of Systems - Review of Systems Constitutional: No problems Breast: No problems ENT: No problems Cardiovascular: No problems Respiratory: No problems Gastrointestinal: No problems Genitourinary: No problems Musculoskeletal: No problems Neurological: No problems Skin: No problems Vital Signs - Temperature Temperature: 97.5 F Temperature Source: Temporal Artery Scan - Pulse Pulse Oximetery Pulse Rate: 74 Pulse Assessment Method: Pulse Oximetry - Respirations Respiratory Rate: 16 Oxygen Delivery Method: Room Air O2 Sat by Pulse Oximetry: 96 - Blood Pressure Right Arm Blood Pressure: 101/57 Blood Pressure Mean: 71 Blood Pressure Source: Automatic Cuff Medical Screen Scoring - Cervical Exam Dilation (cm): 1 Effacement (%): 50 Station: -3 Membranes: Intact - Uterine Contractions Resting: Soft to palpation - Assessment - Baby A Baseline FHR: 130 Heart Rate - NICHD Category: Category I (Normal) NST: Reactive Physician Notification - Physician Notified Physician Notified Date: 06/20/24 Physician Notified Time: 13:10 Physician: Sahra Cervantes Order Received: Yes - Notification Comment Comment: Reported pt presented with c/o contx that have since resolved and just wanted to come get checked out. Reported vital signs WNL, category1 FHT, no contx traced or palpated, cervical exam 1/thick/high. Order received to discharge pt home. Maternal Triage Index - Maternal Triage Index Presenting for scheduled procedure w/no complaint: No - Stat/Priority 1 Stat Priority 1: No - Urgent/Priority 2 Urgent Priority 2: No - Prompt/Priority 3 Prompt Priority 3: Yes Criteria Met for Priority 3: c/o early labor signs 36 0/7 weeks Disposition - Disposition OB Disposition: Discharge to home, Written follow up instructions reviewed Discharge Date: 06/20/24 Discharge Time: 13:24 I agree with the RN Medical Screening Exam: Yes Physician's MSE Comment: I have neither seen nor examined the patient Case reviewed; plan agreed upon as documented in EMR&OBIX.: Yes Diagnosis: FALSE LABOR BEFORE 37 COMPLETED WEEKS OF GEST, SECOND TRI
== END 2024-06-20 13:24 | disposition home or self-care (01) ==
LOC: FBPOP 12:32
PROVIDERS: ATTEND Obstetrics & Gynecology
DX: O47.03 False labor before 37 completed weeks of gestation, third trimester (principal); O99.333 Smoking (tobacco) complicating pregnancy, third trimester; F17.200 Nicotine dependence, unspecified, uncomplicated; Z3A.36 36 weeks gestation of pregnancy
CPT/HCPCS: 59025; G0463; 99213

== ENCOUNTER 2024-07-05 10:43 | Inpatient (IN) | payer OTHER ==
[2024-07-05] MEDS ORDERED: TRANEXAMIC 1,000 MG/100ML-NACL 1,000 MG in EMPTY BAG 1 BAG IV PRN (11:35)
[2024-07-05] MEDS ORDERED: METHYLERGONOVINE 0.2 MG/ML 1 ML AMP IM PRN (11:35)
[2024-07-05] MEDS ORDERED: CARBOPROST TROMETHAMINE 250 MCG/ML 1 ML AMP IM PRN (11:35)
[2024-07-05] MEDS ORDERED: miSOPROStoL 200 MCG TAB RECTAL PRN (11:35)
[2024-07-05] MEDS ORDERED: TERBUTALINE 1 MG/ML VIAL SQ PRN (11:35)
[2024-07-05] MEDS ORDERED: miSOPROStoL 200 MCG TAB PO PRN (11:35)
[2024-07-05] MEDS ORDERED: OXYTOCIN 10 UNIT/ML 1 ML VIAL IM PRN (11:35)
[2024-07-05] MEDS: LACTATED RINGERS 1,000 ML IV SCH (12:01)
[2024-07-05 12:17] LABS: Amphetamine Screen,Urine Not Detected (NotDetected); Barbiturate Screen,Urine Not Detected (NotDetected); Benzodiazepines Screen,Urine Not Detected (NotDetected); Cocaine Screen,Urine Not Detected (NotDetected); Methadone Screen, Urine Not Detected (NotDetected); Opiate Screen,Urine Not Detected (NotDetected); Oxycodone Screen, Urine Not Detected (NotDetected); Phencyclidine Screen,Urine Not Detected (NotDetected); Tricyclic Antidepressant,Urine Not Detected (NotDetected); Urn Cannabinoid Scrn Detected (NotDetected)
[2024-07-05 12:21] LABS: Basophils % (A) 0 %; Eosinophils # (A) 0.1 k/uL (0-0.7); Eosinophils % (A) 2 %; HCT 31.2 % (34.0-46.0); HGB 10.2 gm/dL (11.4-16.0); Hypochromasia Slight; Lymphocytes # (A) 1.6 k/uL (1.0-4.8); Lymphocytes % (A) 21 %; MCHC 32.6 g/dL (31.0-37.0); MCV 79.5 fL (80.0-100.0); Mean Platelet Volume 9.7; Monocytes # (A) 0.2 k/uL (0-1.0); Monocytes % (A) 3 %; Neutrophils # (A) 5.6 k/uL (1.3-7.7); Neutrophils % (A) 74 %; Platelet Count 317 k/uL (150-450); Poikilocytosis Slight; RBC 3.92 m/uL (3.80-5.40); RDW 15.9 % (11.5-15.5); WBC 7.6 k/uL (3.8-10.6)
--- NOTE | 2024-07-05 13:16 | P.HPOB ---
History of Present Illness H&P Date: 07/05/24 Chief Complaint: IUP at 38 and 1 sevenths weeks, labor This is a 28-year-old 6 para 4-0-1-4 at 38 and 1 sevenths weeks that presents to labor and delivery with complaints of regular painful contractions. Patient states she began neville this morning, patient denies loss of fluid or vaginal bleeding. Patient has been receiving routine care although she was late to present for care. Patient does not have custody of 3 of her children. Patient is a poor historian. On blood work this patient is a blood type of O+, rubella status i mmune, hepatitis B surface engine negative, hepatitis C negative, HIV negative, RPR is nonreactive, group beta strep culture is negative. Review of Systems Constitutional: Denies chills, Denies fatigue, Denies fever Ears, nose, mouth and throat: Denies headache Cardiovascular: Reports leg edema Respiratory: Denies dyspnea Gastrointestinal: Denies constipation, Denies diarrhea, Denies nausea, Denies vomiting Genitourinary: Reports Past Medical History Past Medical History: No Reported History Additional Past Medical History / Comment(s): Obstetric history she's had 4 previous vaginal deliveries. History of Any Multi-Drug Resistant Organisms: None Reported Past Surgical History: No Surgical Hx Reported Past Anesthesia/Blood Transfusion Reactions: No Reported Reaction Past Psychological History: Depression Smoking Status: Vaper Past Alcohol Use History: None Reported Additional Past Alcohol Use History / Comment(s): 1ppd from age 15 Past Drug Use History: Marijuana - Past Family History Mother Family Medical History: No Reported History Medications and Allergies Home Medications Medication Instructions Recorded Confirmed Type No Known Home Medications 03/19/23 07/05/24 History Allergies Allergy/AdvReac Type Severity Reaction Status Date / Time No Known Allergies Allergy Verified 06/20/24 12:51 Exam Osteopathic Statement: *. No significant issues noted on an osteopathic structural exam other than those noted in the History and Physical/Consult. Vital Signs Temp Pulse Resp BP Pulse Ox 07/05/24 11:56 98.1 F 98 18 105/63 98 07/05/24 10:55 98.1 F 86 18 105/63 98 Intake and Output 07/04/24 07/05/24 07/05/24 22:59 06:59 14:59 Other: # Voids 1 Weight 107.955 kg Targeted physical exam is performed this date General Is well-nourished well- developed female in no acute distress, breathing is nonlabored, heart has a regular rhythm, abdomen is gravid, on cervical exam she is 5, 70/-3 station amniotomy is performed as bulging bag of arechiga palpated, clear fluid is appreciated. heart tones are noted be category 1 and she is neville every 3 to 4 minutes. Results Result Diagrams: 07/05/24 12:13 Abnormal Lab Results - Last 24 Hours (Table) 07/05/24 07/05/24 Range/Units 11:43 12:13 Hgb 10.2 L (11.4-16.0) gm/dL Hct 31.2 L (34.0-46.0) % MCV 79.5 L (80.0-100.0) fL RDW 15.9 H (11.5-15.5) % U Marijuana (THC) Screen Detected H (NotDetected) Assessment and Plan (1) Term Current Visit: Yes Status: Acute Code(s): Z34.90 - ENCNTR FOR SUPRVSN OF NORMAL , UNSP, UNSP TRIMESTER SNOMED Code(s): 18667119 (2) Active labor Current Visit: Yes Status: Acute Code(s): REO7023 - SNOMED Code(s): 951837518 Plan: 28-year-old -0-1-4 at 38 and 1 sevenths weeks that presents in active labor. Patient is admitted to labor and delivery, amniotomy is performed. Patient does desire epidural. Anesthesia will be notified. Will monitor contractions and add Pitocin for augmentation of labor if necessary. All questions are answered patient states understanding of plan of care. Anticipate spontaneous vaginal delivery.
[2024-07-05] MEDS ORDERED: fentaNYL (PF) 50 MCG/ML 5 ML AMP ONE (13:37)
[2024-07-05] MEDS ORDERED: SODIUM CHLORIDE 0.9% 250 ML BAG ONE (13:37)
[2024-07-05] MEDS ORDERED: ROPIVACAINE 5 MG/ML 30 ML VIAL ONE (13:37)
[2024-07-05] MEDS: OXYTOCIN 30 UNITS/500 ML NS 30 UNIT in SALINE 1 500ML.BAG IV SCH (14:00)
[2024-07-05] MEDS: LIDOCAINE 0.5% (PF) 5 MG/ML (50 ML SDV) SQ PRN (16:23)
[2024-07-05] MEDS ORDERED: ZOLPIDEM 5 MG TAB PO PRN (16:33)
[2024-07-05] MEDS ORDERED: diphenhydrAMINE 50 MG/ML 1 ML VIAL IVP PRN ×2 (16:33)
[2024-07-05] MEDS ORDERED: diphenhydrAMINE 25 MG CAP PO PRN (16:33)
[2024-07-05] MEDS ORDERED: SIMETHICONE 80 MG CHEWABLE PO PRN (16:33)
[2024-07-05] MEDS ORDERED: BENZOCAINE/MENTHOL SPRAY 1 GM/SPRAY AEROSOL TOPICAL PRN (16:33)
[2024-07-05] MEDS ORDERED: diphenhydrAMINE 50 MG CAP PO PRN (16:33)
[2024-07-05] MEDS ORDERED: HYDROCORTISONE 2.5% RECTAL CREAM 30 GM TUBE RECTAL PRN (16:33)
[2024-07-05] MEDS ORDERED: LANOLIN CREAM 1 GM TUBE TOPICAL PRN (16:33)
--- NOTE | 2024-07-05 16:33 | P.PROBDLV ---
Vaginal Delivery Note - . Vaginal Delivery Note: This is a 28-year-old 6 para 4-0-1-4 that presented to labor and delivery at 38 and 1 sevenths week with complaints of regular painful contractions. Patient began neville around 830 this morning and noted them to be regular and painful. Patient was noted to be 4 cm upon admission and neville every 3 to 4 minutes. Patient was admitted to labor and delivery and amniotomy was performed patient was noted to be 5 to 6 cm at this time. Patient did request epidural. Epidural was placed without difficulty by the anesthesia department. Patient made progress toward complete dilation. Once completely dilated patient began pushing and had a normal spontaneous vaginal delivery of a viable male at 1617, weight of 7 pounds 15.5 ounces, Apgars of 9 and 9 at 1 and 5 minutes respectively. After 2-minute delay the umbilical cord was doubly clamped and cut. Placenta was delivered spontaneously intact with a three-vessel cord being noted. On inspection the patient's vaginal vault a first-degree vaginal laceration was appreciated. This was injected with lidocaine and repaired in the usual fashion with 3-0 Rapide. Hemostasis was appreciated after closure. All counts were noted be correct x 2. Patient and infant tolerated delivery well and are resting comfortably.
[2024-07-05] MEDS: IBUPROFEN 800 MG TAB PO SCH (17:07)
[2024-07-05] MEDS: SENNOSIDES-DOCUSATE SODIUM 1 EACH TAB PO SCH (19:46)
[2024-07-05] MEDS: ACETAMINOPHEN TAB 500 MG TAB PO SCH (19:46)
[2024-07-06 07:08] LABS: Basophils % (A) 0 %; Eosinophils # (A) 0.1 k/uL (0-0.7); Eosinophils % (A) 1 %; HCT 29.9 % (34.0-46.0); HGB 9.6 gm/dL (11.4-16.0); Hypochromasia Moderate; Lymphocytes # (A) 1.8 k/uL (1.0-4.8); Lymphocytes % (A) 25 %; MCH 26.2 pg (25.0-35.0); MCHC 32.2 g/dL (31.0-37.0); MCV 81.4 fL (80.0-100.0); Monocytes # (A) 0.3 k/uL (0-1.0); Monocytes % (A) 4 %; Neutrophils % (A) 69 %; Platelet Count 281 k/uL (150-450); RBC 3.67 m/uL (3.80-5.40); RDW 15.7 % (11.5-15.5); WBC 7.3 k/uL (3.8-10.6)
--- NOTE | 2024-07-06 07:15 | P.DS ---
Providers Date of admission: 07/05/24 11:35 Expected date of discharge: 07/06/24 Attending physician: Sahra Cervantes MD Primary care physician: Stated None - Discharge Diagnosis(es) (1) Term Current Visit: Yes Status: Acute (2) Active labor Current Visit: Yes Status: Acute (3) Status post vaginal delivery Current Visit: Yes Status: Acute (4) Obstetrical laceration, first degree Current Visit: Yes Status: Acute Hospital Course: 28-year-old 6 now para 5-0-1-5 that presented to labor and delivery at 38 and 1 sevenths weeks in active labor. Patient has been receiving mostly routine care, patient was late to seek care. Patient does not have custody of 3 of her children. Patient was admitted to labor and delivery and requested epidural. Epidural was placed without difficulty by the anesthesia department. Amniotomy was performed and clear fluid was obtained. Patient progressed to labor making good progress toward complete dilation. Once completely dilated patient began pushing and had a normal spontaneous vaginal delivery of a viable male infant at 1617, weight of 7 pounds 15.5 ounces. Patient did sustain a f irst-degree obstetric laceration during delivery. This laceration was repaired in the usual fashion with 3-0 Rapide. Patient's course has been uneventful. In this day #1 she is ambulating and voiding without difficulty. She is tolerating regular diet without nausea or vomiting. She states her pain is well-controlled. She denies concerns and would like discharge home at 24 hours of possible. Patient Condition at Discharge: Good Plan - Discharge Summary New Discharge Prescriptions: No Action No Known Home Medications Discharge Medication List No Known Home Medications 03/19/23 [History] Follow up Appointment(s)/Referral(s): Sahra Cervantes MD [STAFF PHYSICIAN] - 1 Week Patient Instructions/Handouts: Vaginal Delivery (GEN), Vaginal Delivery (DC) Activity/Diet/Wound Care/Special Instructions: No tub baths or intercourse until 6 weeks , [id number] ibuprofen 600 mg or 3 tablets every 6 hours as needed for pain. Discharge Disposition: HOME SELF-CARE
[2024-07-06 07:37] VITALS: BP 107/73; PULSE 60; RESP 16; TEMP 99.8
== END 2024-07-06 16:45 | disposition home or self-care (01) | DRG 560 ==
LOC: FBPOP 10:43 → 4FBP 11:35
PROVIDERS: ADMIT Obstetrics & Gynecology Obstetrics; ATTEND Obstetrics & Gynecology
PROC: 10E0XZZ Delivery of Products of Conception, External Approach (ICD-10-PCS; principal; 2024-07-05)
PROC: 0HQ9XZZ Repair Perineum Skin, External Approach (ICD-10-PCS; 2024-07-05)
DX: O70.0 First degree perineal laceration during delivery (principal); Z37.0 Single live birth; Z3A.38 38 weeks gestation of pregnancy
CPT/HCPCS: 59025; 80306; 85025; 86850; 86900; 86901; 99213